=== PATIENT | female | born 1935 | race Caucasian/White ===

== ENCOUNTER → 2017-02-17 | Outpatient (CLI) | payer OTHER, MEDICARE ==
[~2017-02-17] MED LIST: ACCUPRIL PO; ACCUPRIL40 MG PO; ALEVE220 M1 PO; AMBEREN PO; APAP500 PO; ASPIRIN EC81 M1 PO; B-100 COMPLEX1 EAC1 PO; B-COMPLEX PLUS1 EACH PO; C-10001000 M1 PO; CARDIO OMEGA B1 EACH PO; CARDIOSTEROL C1 EACH PO; CARDIOTAB PO; CIPROFLOXACIN500 M1 PO; CITRACAL + BON1 EACH PO; CITRACAL + D C1 EACH PO; CO Q-10100 MG PO; COQ-10100 MG PO; DAILY MULTIPLE1 EAC2; DRANOCHOL375 MG PO; FISH OIL 1,0001 EAC5 PO; FLAGYL 250 MG250 MG PO; GLUCOSAMIN-CHO1 EACH PO; GLUCOSAMINE CH1 EAC7 PO; HEART HEALTH A400 MG PO; IMODIUM A-D1 MG/5 ML PO; LEVOTHYROXINE 0.1 MG PO; LIPITOR20 MG PO; LIPITOR40 MG PO; LOPERAMIDE 2 MG2 M1 PO; LOPRESSOR25 PO; MULTIVITAMINS PO; NORCO 5-325 TA1 EACH PO; OMEGA-3100 MG PO; OMEPRAZOLE PO; PACERONE 200 M200 M1 PO; PRADAXA150 MG PO; PRADAXA75 MG; PRADAXA75 MG PO; PREDNISOLONE PO; PREDNISONE PO; PRILOSEC 20 MG20 MG PO; QUINU10 PD PO; SLOW FE 160MG160 MG PO; VITAMIN D250000 UNIT PO; VITAMIN D31000 UNI2 PO; VITAMIN D35000 UNI1 PO; VITCB500GO PO
== END ==
LOC: RAD 09:37
DX: M47.892 Other spondylosis, cervical region (principal); M85.80 Other specified disorders of bone density and structure, unspecified site

== ENCOUNTER → 2017-02-27 | Outpatient (CLI) | payer OTHER, MEDICARE | LOC: MRI 08:21 | DX: M54.2 Cervicalgia (principal); M62.81 Muscle weakness (generalized); R20.2 Paresthesia of skin ==

== ENCOUNTER 2017-03-02 08:53 | Inpatient (IN) | payer OTHER, MEDICARE ==
[~2017-03-02] VITALS: Ht 157.5 cm; Wt 67.5 kg
[2017-03-02] VITALS (7 sets, daily range): BP systolic 89–152; BP diastolic 40–98
--- NOTE | ~2017-03-02 | HC ---
[facility] [place] [address] CONSULTATION Name: JAYLEN BORJA Room #: 460-P ADM IN M.R.#: [id number] Admission: 03/02/17 Attend Phys: Pablito Rodríguez MD Discharge: Date of : 34 Report #: [id number] THIS REPORT FOR: //name// CC: Pablito Maganala [facility] DATE OF SERVICE: 03/06/2017 INFECTIOUS DISEASE CONSULTATION ATTENDING PHYSICIAN: Pablito Rodríguez M.D. REASON FOR EVALUATION: Complicated urinary tract infection. HISTORY OF PRESENT ILLNESS: Chart reviewed, the patient examined. This is an 81-year-old female with fairly significant medical history, who apparently has had some neurological dysfunction, specifically bilateral upper extremity distal numbness and tingling for the last 3-4 weeks. She became progressively weak. She had multiple falls, one of which occurred prior to admission. She was down for 12 hours, has had some generalized pain and discomfort as well. She was evaluated in the emergency room including urinalysis, which showed marked pyuria as well as hematuria. She was started empirically on antimicrobial therapy, specifically ceftriaxone. Urine culture now with growth of Escherichia coli that is only mildly resistant. It is susceptible to Rocephin at less than 1. She is lucid at this point. She is noted to have increasing white count, initially at 20, peaked briefly and now it is 24.6. Also progressive anemia now with hemoglobin at 6.3. She is scheduled to undergo upper endoscopy. Due to the numbness and tingling, she had an MRI of her head that shows chronic age-related changes, no acute process. Chest x-ray was otherwise unrevealing as well. She has not been febrile. ALLERGIES: CIPRO, which causes more adverse drug effect with nausea. MEDICATIONS: Include pantoprazole, diltiazem CD, atorvastatin, metoprolol, aspirin, dabigatran, levothyroxine and ceftriaxone. PAST MEDICAL HISTORY: Atrial fibrillation, history of endometrial carcinoma, hypertension, polymyalgia rheumatica, history of reflux, TIAs, distant history of C. diff, previous total hip arthroplasty on the left, hysterectomy and bilateral catheters. SOCIAL HISTORY: Former smoker. No ethanol. FAMILY HISTORY: Noncontributory. REVIEW OF SYSTEMS: As above. [address] [address] CONSULTATION Name: JAYLEN BORJA Room #: 460-P [facility] IN M.R.#: [id number] Admission: 03/02/17 Attend Phys: Pablito Rodríguez MD Discharge: Date of : 34 Report #: [id number] PHYSICAL EXAMINATION: GENERAL: She is pleasant, alert, cooperative, appears somewhat chronically ill, undernourished. She is not overtly distressed. VITAL SIGNS: Temperature 97.7, pulse 88, respirations 20 and blood pressure 141/50. SKIN: Warm, dry. No rashes. HEENT: Otherwise, unremarkable. NECK: Supple. LUNGS: Generally clear. HEART: Irregular. I do not appreciate a murmur. ABDOMEN: Soft, nontender and nondistended. There are no peritoneal signs. GENITOURINARY: Deferred. RECTAL: Deferred. LABORATORY DATA: Most recent electrolytes: Sodium 142, potassium 4.0, chloride 109, bicarbonate is 22, anion gap of 11, BUN and creatinine 56 and 0.9 and glucose of 102. CBC: White count 24.6, H and H 6.3 and 19.6 and platelets of 397,000. Free T4 0.91. Hemoglobin A1c of 5.3. MRI of the head as described above. TSH of 1.671. ASSESSMENT AND PLAN: Complicated urinary tract infection and increasing leukocytosis. We will continue the ceftriaxone. I do not see another focus of pyogenic infection at this point. Certainly at risk to develop some diarrhea with her history of C. diff, may account for the leukocytosis. We will certainly pursue that possible diagnosis. May be reactive due to rapid blood loss and bone marrow aggressive response. We will see how she does clinically. Thank you. We will follow. <ELECTRONICALLY SIGNED> By: Kartik Garces MD 03/06/17 1535 0755 1054 Kartik Garces MD /nt
--- NOTE | ~2017-03-02 | EKG ---
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 : 1935 Requested By: Vamsi Robles Order Number: [id number] MD: Wali Lei Measurements Intervals [place] Rate: 106 P: MD: QRS: 32 QRSD: 91 T: 1 QT: 330 QTc: 439 Interpretive Statements Atrial fibrillation Borderline low voltage, extremity leads Minimal ST depression, inferior leads Compared to ECG 05/17/2015 10:47:01 ST (T wave) deviation now present Sinus bradycardia no longer present T-wave abnormality no longer present Electronically Signed On 03-03-2017 12:46:26 CDT by Wali Lei [email or web address] <ELECTRONICALLY SIGNED> By: Wali Lei MD 03/03/17 1246 5 5 Wali Lei MD /EPI
--- NOTE | ~2017-03-02 | HC ---
[facility] [place] [address] CONSULTATION Name: JAYLEN BORJA Room #: 460-P ADM IN M.R.#: [id number] Admission: 03/02/17 Attend Phys: Pablito Rodríguez MD Discharge: Date of : 34 Report #: [id number] THIS REPORT FOR: //name// CC: Pablito Maganatera HISTORY OF PRESENT ILLNESS: The patient is an 81-year-old white female admitted through the Emergency Department with dizziness, had a fall. She ended up spinning 2 days in a couch. She was admitted with low blood pressure, elevated white count, elevated creatinine noted to have sepsis secondary to urinary tract infection, acute renal insufficiency, atrial fibrillation with rapid ventricular rate. She has hypoxemia, currently on 2 liters nasal cannula. She had not been on any oxygen premorbidly. She has medical complexity with generalized debilitation. We are seeing her in rehabilitation medicine consultation. Of note is the fact that she also has been complaining of bilateral hand numbness. She did undergo a cervical spine MRI, which revealed severe stenosis at multiple levels. Critical stenosis with cord deformity and flattening anterior and posteriorly at C2-C3. No intrinsic cord signal changes were noted. PAST MEDICAL HISTORY: Includes hypertension, atrial fibrillation, GERD, Clostridium difficile, history of incontinence, GI bleed, endometriosis, polymyalgia rheumatica, hypothyroidism, uterine cancer status post radiation. PAST SURGICAL HISTORY: Includes total hysterectomy and a hip replacement. MEDICATIONS: Please see the medication listing. FAMILY HISTORY: Mother had a CVA and father had cancer. HABITS: Did smoke, quit greater than 1 year back in 1999. No history of alcohol use or drug use. SOCIAL HISTORY: She lives in a town house alone. No steps. Utilized a cane, there are 14 inside steps. There are two sisters and a [id number] that live in [place], [place]. She has a neighbor a couple of blocks away that is supportive. REVIEW OF SYSTEMS: No current complaints of chest pain, shortness of breath or abdominal discomfort. She does have complaints of the bilateral hand numbness. She has had prior urinary incontinence. No focal extremity pain complaints. Did not complain of any headaches or other bowel or bladder changes. PHYSICAL EXAMINATION: GENERAL: An 81-year-old white female, pleasant, in no obvious distress. VITAL SIGNS: Last recorded temperature is 97.6, pulse 79, respirations 18, blood pressure 122/49. NEUROLOGIC: The patient is alert, pleasant. She is a reasonable historian. [address] [address] CONSULTATION Name: JAYLEN BORJA Room #: 460-[facility] IN ..#: [id number] Admission: 03/02/17 Attend Phys: Pablito Rodríguez MD Discharge: Date of : 34 Report #: [id number] Facies are symmetric. She is on 2 liters nasal prong O2. EXTREMITIES: Functional range of motion to both upper extremities. She does appear to have both hands that are little colder than her proximal upper body. She appears to have good capillary refill; however, with good perfusion. Negative Tinel's over the carpal tunnel and negative Phalen's bilaterally. Strength of the upper extremities is probably a grade 4-/5. In the lower extremities, there is no focal calf swelling, functional range of motion with strength grade 3+ to 4-/5. Tone appeared to be intact. She was contact guard with sit to stand and ambulated 60 feet min assist with a front-wheeled walker. ASSESSMENT: An 81-year-old white female with the following problem list: 1. Medical complexity with generalized debilitation. 2. Sepsis secondary to urinary tract infection. 3. Acute renal insufficiency. 4. Atrial fibrillation with rapid ventricular rate, considering the risks may outweigh benefits as far as anticoagulation. Question to just treat with aspirin alone. 5. Hypertension. 6. Hypothyroidism. 7. History of GI bleed. 8. History of Clostridium difficile. 9. Gastroesophageal reflux disease. PLAN: Therapies are continuing to work with her on improving her strength and endurance and ADL independence. We will be glad to follow along with you regarding her rehab therapy needs. ADDENDUM: Her problem list also includes the severe cervical spinal stenosis that is documented on her MRI scan. Thank you for asking us to assist in this patient's care. <ELECTRONICALLY SIGNED> By: Rodriguez Lagunas MD 03/10/17 1825 1522 Rodriguez Lagunas MD /nt
--- NOTE | ~2017-03-02 | 2DMMODE ---
[facility] [place] [address] 2 D/M-MODE ECHOCARDIOGRAM Name: JAYLEN BORJA Room #: 460-P [facility] IN ..#: [id number] Admission: 03/02/17 Attend Phys: Pablito Rodríguez, Discharge: Date of : 34 Date of Service: 03/03/17 1636 Report #: [id number] THIS REPORT FOR: //name// APPROVED REPORT Study performed: 03/03/2017 07:39:37 EXAM: Comprehensive 2D, Doppler, and color-flow Echocardiogram Patient Location: Bedside Room #: 460 Status: routine Other Information Study Quality: Adequate Indications Atrial Fibrillation 2D Dimensions RVDd: 37.86 mm LVEF(%): 60.64 (>50%) IVSd: 7.47 (7-11mm) LVOT Diam: 18.13 (18-24mm) LVDd: 35.36 mm PWd: 10.46 (7-11mm) LVDs: 24.17 (25-40mm) Aortic Root: 30.66 mm Apodaca's LVEF: 60.64 % Volumes Left Atrial Volume (Systole) Single Plane 4CH: 38.91 mL Single Plane 2CH: 57.85 mL LA ESV Index: 33.00 mL/m2 Aortic Valve AoV Peak Nikolay.: 1.83 m/s AO Peak Gr.: 13.44 mmHg LVOT Max P.64 mmHg LVOT Max V: 1.08 m/s JENNYFER Vmax: 1.52 cm2 Mitral Valve MV Decel. Time: 235.92 ms MV E Max Nikolay.: 1.17 m/s Pulmonary Valve PV Peak Nikolay.: 1.23 m/s PV Peak Gr.: 6.06 mmHg [facility] [address] [place] [address] 2 D/M-MODE ECHOCARDIOGRAM Name: JAYLEN BORJA Room #: 460-[facility] IN [facility].#: [id number] Admission: 03/02/17 Attend Phys: Pablito Rodríguez, Discharge: Date of : 34 Date of Service: 03/03/17 1636 Report #: [id number] Tricuspid Valve TR Peak Nikolay.: 2.75 m/s RAP Estimate: 5.00 mmHg TR Peak Gr.: 30.29 mmHg PA Pressure: 35.00 mmHg Left Ventricle The left ventricle is normal size. There is normal LV segmental wall motion. There is normal left ventricular wall thickness. The left ventricular systolic function is normal. The left ventricular ejection fraction is within the normal range. LVEF is 55-60%. This study is not technically sufficient to allow evaluation of the LV diastolic function due to atrial fibrillation. Right Ventricle The right ventricle is normal size. The right ventricular systolic function is normal. Atria The left atrium size is normal. The right atrium size is normal. Aortic Valve The aortic valve is normal in structure. Trace aortic regurgitation. There is no aortic valvular stenosis. 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 Trace mitral regurgitation. No evidence of mitral valve stenosis. Tricuspid Valve Tricuspid valve leaflets are thickened but open well. There is trace tricuspid regurgitation. The right atrial pressure is estimated at 10 mmHg. There is mild pulmonary hypertension with an estimated PAP of 40 mmHg. Pulmonic Valve The pulmonary valve is normal in structure. There is no pulmonic valvular regurgitation. Great Vessels The aortic root is normal in size. IVC is dilated and collapses >50% with inspiration. Pericardium There is no pericardial effusion. [facility] [address] [place] [address] 2 D/M-MODE ECHOCARDIOGRAM Name: JAYLEN BORJA Room #: 460-P [facility] IN .R.#: [id number] Admission: 03/02/17 Attend Phys: Pablito Rodríguez, Discharge: Date of : 34 Date of Service: 03/03/17 1636 Report #: [id number] <Conclusion> The left ventricle is normal size. LVEF is 55-60%. The aortic valve is normal in structure. Trace aortic regurgitation. Mitral valve leaflets appear myxomatous. Trace mitral regurgitation. Tricuspid valve leaflets are thickened but open well. There is trace tricuspid regurgitation. The right atrial pressure is estimated at 10 mmHg. There is mild pulmonary hypertension with an estimated PAP of 40 mmHg. The pulmonary valve is normal in structure. There is no pulmonic valvular regurgitation. <ELECTRONICALLY SIGNED> By: Dann Hoyt MD 03/03/17 1636 1636 163 Dann Hoyt MD /INF
--- NOTE | ~2017-03-02 | EKG ---
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
--- NOTE | ~2017-03-02 | HC ---
[facility] [place] [address] CONSULTATION Name: JAYLEN BORJA Room #: 460-P ADM IN .R.#: [id number] Admission: 03/02/17 Attend Phys: Pablito Rodríguez MD Discharge: Date of : 34 Report #: [id number] THIS REPORT FOR: //name// CC: Johnathan Mackey MD [facility] Pablito Morley MD DATE OF SERVICE: 03/06/2017 HISTORY OF PRESENT ILLNESS: The patient is an 81-year-old female who was admitted on 03/02/2017 after having several falls at home and being down for a period of time. On admission, she was hypertension, white count was 20,000, creatinine was elevated and she was diagnosed with sepsis and UTI. She has been on IV antibiotics. Reason for GI consultation is a drop in her hemoglobin. Her hemoglobin on admission was 11.1; today, it is 6.3. She denies any obvious bright red blood per rectum or melena. She denies any abdominal pain. She has had a previous history of GI bleed in which I did a colonoscopy on her in 2011 in which a cecal AVM was actively bleeding. This was cauterized at that time. The patient is on Pradaxa and aspirin, her last dose was yesterday for . Her white count today is 24.6. Blood has been ordered, but has not been transfused as of yet. She has not hypertensive at this time. She denies any chest pain or shortness of breath currently. PAST MEDICAL HISTORY: Sepsis, urinary tract infection, history of severe spinal stenosis, back pain, previous history of small-bowel obstruction, she had a total hysterectomy, left hip replacement, previous history of pneumonia, polymyalgia rheumatica, cataract surgery, history of C. diff in 2010, cecal AVM with bleeding in 2011, gastroesophageal reflux disease, hypertension and history of endometrial cancer. MEDICATIONS: From home Lopressor, Pradaxa, aspirin, Synthroid and Accupril. She is on IV antibiotics here for sepsis, which includes ceftriaxone. She is also on Protonix 40 mg every day, started today. REVIEW OF SYSTEMS: As per HPI. FAMILY HISTORY: Negative for colon cancer. SOCIAL HISTORY: She denies any tobacco or alcohol use. ALLERGIES: CIPRO. PHYSICAL EXAMINATION: [facility] [address] [place] [address] CONSULTATION Name: JAYLEN BORJA Room #: 460-P [facility] IN ..#: [id number] Admission: 03/02/17 Attend Phys: Pablito Rodríguez MD Discharge: Date of : 34 Report #: [id number] VITAL SIGNS: Temperature is 98.4, pulse 108, blood pressure 138/70 and respiratory rate is 20. GENERAL: She is alert and oriented, in no acute distress. HEENT: Sclerae nonicteric. Oropharynx clear. NECK: Supple, without lymphadenopathy. CARDIOVASCULAR: Regular rate. CHEST: Clear to auscultation bilaterally. ABDOMEN: Soft. She is nontender and nondistended. Normoactive bowel sounds. EXTREMITIES: No cyanosis or clubbing. Trace edema in the lower extremities bilaterally. LABORATORY DATA: Sodium 142, potassium 4.0, chloride 109, bicarbonate 22, BUN 56, creatinine 0.9 and glucose 102. AST 59, total bilirubin 0.7, alkaline phosphatase 144 and ALT is 67. Albumin 2.4. Troponin less than 0.04 on the . Iron 66, TIBC 220. WBC is 24.6, hemoglobin 6.3, MCV 88.7 and platelet count is 397,000. She had an MRI of her head with no acute changes on 03/05/2017. ASSESSMENT AND PLAN: Anemia. The patient with recent drop in hemoglobin. She has been on aspirin and Pradaxa. There was no obvious history of melena or bright red blood per rectum; however, suspect GI bleed. We will proceed with an upper endoscopy today. Agree with Protonix and continuing to hold her anticoagulation therapy at this time. We will make further recommendations after endoscopy. Plan is for transfusion today as well. Thank you for allowing me to participate in her care. <ELECTRONICALLY SIGNED> By: Kevin Smalls MD 03/16/17 1212 1003 1158 Kevin Smalls MD /nt
--- NOTE | ~2017-03-02 | EEG ---
[facility] [place] [address] ELECTROENCEPHALOGRAM Name: JAYLEN BORJA Room #: 460-P [facility] IN M.R.#: [id number] Admission: 03/02/17 Attend Phys: Pablito Rodríguez MD Discharge: Date of : 34 Report #: [id number] THIS REPORT FOR: //name// CC: Pablito Constantino [facility] DATE OF SERVICE: 03/04/2017 This patient is being evaluated for an episode of syncope. EEG was done by placing the electrodes by standard 10-20 system of electrode placement. Both referential and sequential montages were used for recording. Background activity in this patient's EEG is about 9 Hz and 30 microvolt. This is a symmetrical activity. Photic stimulation was unremarkable. This patient became drowsy and that was associated with bilateral slowing and a few vertex sharp waves, which were symmetrical throughout the records. No active epileptiform activity was noticed. IMPRESSION: This patient's EEG is within normal limit. Thank you very much for this referral. <ELECTRONICALLY SIGNED> By: Franco Cornell MD 03/10/17 1018 Franco Cornell MD /nt
--- NOTE | ~2017-03-02 | P ---
[facility] [place] [address] PROCEDURE REPORT Name: JAYLEN BORJA Room #: 460-P [facility] IN M.R.#: [id number] Admission: 03/02/17 Attend Phys: Pablito Rodríguez MD Discharge: Date of : 34 Report #: [id number] THIS REPORT FOR: //name// CC: Johnathan Mackey MD [facility] Pablito Morley MD DATE OF SERVICE: 03/06/2017 PROCEDURE PERFORMED: Upper endoscopy. HISTORY OF PRESENT ILLNESS: The patient is an 81-year-old female with urosepsis, weakness, recent drop in hemoglobin to 6.3. She has been on Pradaxa an aspirin. This has now been held. Protonix has been started. There has been no obvious history of melena or bright red blood per rectum. Plan is for EGD. DESCRIPTION OF PROCEDURE: The risks and benefits of the procedure were explained to the patient, those risks including but not limited to bleeding, perforation, the risk of sedation. She understood these risks and gave informed consent. Sedation was given using propofol per anesthesia. Next, using a standard Nginxn upper endoscope, the scope was placed in the patient's mouth and advanced under direct vision through the esophagus, stomach and into the second portion of the duodenum. The larynx and upper and mid esophagus were normal in appearance. Mild grade A erosive esophagitis noted at the GE junction as well as a stricture. The scope passed through this area without difficulty. Upon entering the stomach, a large hiatal hernia was noted. Several Bryan ulcers were noted within the hernia. No active bleeding, although there was a small amount of old blood in this area. There were several gastric erosions in the antrum. The pylorus was normal and patent. In the duodenal bulb, a single 1 cm ulcer was noted, clean white based. Another centimeter ulcer was seen in the first portion of the duodenum, also clean white based. There was no blood in the duodenum. The second portion of the duodenum was normal. The scope was then withdrawn and the procedure terminated. The patient tolerated the procedure well. IMPRESSION: 1. Grade A erosive esophagitis. 2. Mild Schatzki's ring. 3. Large hiatal hernia with Bryan ulcers. 4. Antral erosions. 5. Two duodenal ulcers. RECOMMENDATIONS: Drop in hemoglobin, likely secondary to either ulcers in the [facility] [address] [place] [address] PROCEDURE REPORT Name: JAYLEN BORJA Room #: 460-P [facility] IN .R.#: [id number] Admission: 03/02/17 Attend Phys: Pablito Rodríguez MD Discharge: Date of : 34 Report #: [id number] stomach or duodenum. At this point, would recommend continuing PPI therapy. We will add Carafate. Continue to hold anticoagulation therapy and monitor hemoglobin. Thank you for allowing me to participate in her care. <ELECTRONICALLY SIGNED> By: Kevin Smalls MD 03/16/17 1212 1006 1120 Kevin Smalls MD /nt
[2017-03-02 09:39] LABS: HEMOGLOBIN 11.1 gm/dL (12.0-15.0); MCH 29.3 pg (26.0-34.0); MCHC 32.8 g/dL (28.0-37.0); MCV 89.4 fL (80.0-100.0); PLATELET COUNT 327 thou/uL (150-400); WBC 20.3 thou/uL (4.0-11.0)
[2017-03-02 09:43] LABS: MANUAL DIFF YES
[2017-03-02 09:52] LABS: ANION GAP 11 mmol/L (7-16); BUN 52 mg/dL (7-18); CALCIUM 9.6 mg/dL (8.5-10.1); CHLORIDE 97 mmol/L (98-107); CO2 24 mmol/L (21-32); CREATININE 1.7 mg/dL (0.6-1.0); GLUCOSE 122 mg/dL (74-106); POTASSIUM 3.5 mmol/L (3.5-5.1); SODIUM 132 mmol/L (136-145)
[2017-03-02 09:57] LABS: ALBUMIN 2.4 g/dL (3.4-5.0); ALKALINE PHOSPHATASE 144 U/L (46-116); SGOT 59 U/L (15-37); SGPT 67 U/L (30-65); TOTAL BILIRUBIN 0.7 mg/dL (<0.1-1.0); TOTAL PROTEIN 7.4 g/dL (6.4-8.2); TROPONIN-I < 0.04 ng/mL (<0.04-0.07)
[2017-03-02 10:25] LABS: URINE BILIRUBIN NEGATIVE (Negative); URINE BLOOD 1+ (Negative); URINE COLOR YELLOW; URINE GLUCOSE-RANDOM* NEGATIVE (Negative); URINE KETONES NEGATIVE (Negative); URINE LEUKOCYTES-REFLEX 1+ (Negative); URINE PROTEIN (DIPSTICK) 1+ (Negative); URINE UROBILINOGEN 0.2 E.U./dl (0.2-1.0)
[2017-03-02 10:38] LABS: SQUAMOUS 0-3 Few /LPF (0-3)
[2017-03-02 10:39] LABS: AMORPHOUS URATES Few /LPF (None Seen); CASTS None Seen /LPF (None Seen); URINE RBC 0-2 Rare /HPF (0-2)
[2017-03-02 10:41] LABS: ABSOLUTE NEUTROPHILS 19.3 thou/uL (1.4-8.2); METAMYELOCYTES 1 %; PLATELET ESTIMATE NORMAL; TOTAL CELL COUNT 100
[2017-03-03 04:13] VITALS: BP 118/52
[2017-03-03 06:31] LABS: HEMATOCRIT 29.9 % (37.0-47.0); HEMOGLOBIN 9.7 gm/dL (12.0-15.0); MCH 29.3 pg (26.0-34.0); MCHC 32.5 g/dL (28.0-37.0); RBC 3.32 mil/uL (4.20-5.00); RDW 15.1 % (10.5-14.5); WBC 19.5 thou/uL (4.0-11.0)
[2017-03-03 08:00] VITALS: BP 128/62
[2017-03-03 11:01] LABS: CALCIUM 8.9 mg/dL (8.5-10.1); POTASSIUM 3.5 mmol/L (3.5-5.1)
[2017-03-03 12:08] VITALS: BP 122/49
[2017-03-03 16:25] VITALS: BP 134/71
[2017-03-03 20:13] VITALS: BP 145/50
[2017-03-03 23:24] VITALS: BP 101/74
[2017-03-04 03:46] VITALS: BP 152/77
[2017-03-04 07:11] LABS: HEMOGLOBIN 9.1 gm/dL (12.0-15.0); MCH 29.5 pg (26.0-34.0); MCHC 33.6 g/dL (28.0-37.0); MCV 87.7 fL (80.0-100.0); RBC 3.07 mil/uL (4.20-5.00); WBC 18.9 thou/uL (4.0-11.0)
[2017-03-04 07:26] LABS: CREATININE 0.9 mg/dL (0.6-1.0); POTASSIUM 3.7 mmol/L (3.5-5.1)
[2017-03-04 07:40] VITALS: BP 162/79
[2017-03-04 11:45] VITALS: BP 134/68
[2017-03-04 13:51] LABS: CHOLESTEROL 157 mg/dL (<200); HDL CHOLESTEROL 11 mg/dL (>40); LDL CHOLESTEROL 111 mg/dL (<100); TC:HDL 14.3 Ratio (Not establshd); TRIGLYCERIDE 176 mg/dL (<150); VLDL 35 mg/dL (<40)
[2017-03-04 19:39] VITALS: BP 160/85
[2017-03-04 23:34] VITALS: BP 181/78
[2017-03-05 03:40] VITALS: BP 145/75
[2017-03-05 03:51] LABS: CALCIUM 8.9 mg/dL (8.5-10.1); CREATININE 0.9 mg/dL (0.6-1.0); POTASSIUM 4.2 mmol/L (3.5-5.1)
[2017-03-05 04:14] LABS: HEMATOCRIT 22.6 % (37.0-47.0); HEMOGLOBIN 7.7 gm/dL (12.0-15.0); MCH 29.8 pg (26.0-34.0); MCHC 34.1 g/dL (28.0-37.0); MCV 87.5 fL (80.0-100.0); RBC 2.59 mil/uL (4.20-5.00); RDW 15.3 % (10.5-14.5); WBC 23.2 thou/uL (4.0-11.0)
[2017-03-05 04:46] LABS: FOLIC ACID 8.6 ng/mL (8.6-58.9); TSH 1.671 uIU/mL (0.358-3.740)
[2017-03-05 07:29] VITALS: BP 126/59
[2017-03-05 11:39] VITALS: BP 121/49
[2017-03-05 12:13] LABS: FREE T4 0.91 ng/dL (0.82-1.77)
[2017-03-05 16:16] VITALS: BP 133/59
[2017-03-05 19:40] VITALS: BP 142/46
[2017-03-06 04:09] LABS: GLYCOHEMOGLOBIN (HGB A1C) 5.3 % (4.8-5.6)
[2017-03-06 04:30] VITALS: BP 141/50
[2017-03-06 05:55] LABS: MCH 28.8 pg (26.0-34.0); MCHC 32.4 g/dL (28.0-37.0); MCV 88.7 fL (80.0-100.0); RBC 2.21 mil/uL (4.20-5.00); RDW 15.2 % (10.5-14.5); WBC 24.6 thou/uL (4.0-11.0)
[2017-03-06 06:05] LABS: CALCIUM 8.7 mg/dL (8.5-10.1); CREATININE 0.9 mg/dL (0.6-1.0)
[2017-03-06 06:07] LABS: HEMATOCRIT 19.6 % (37.0-47.0); HEMOGLOBIN 6.3 gm/dL (12.0-15.0)
[2017-03-06 07:22] LABS: TIBC 220 ug/dL (250-450)
[2017-03-06 07:37] LABS: % SATURATION 30 % (20-39); IRON 66 ug/dL (50-170); UIBC 154 ug/dL
[2017-03-06 08:30] VITALS: BP 138/70
[2017-03-06 11:57] VITALS: BP 132/60; BP 137/62
[2017-03-06 15:22] VITALS: BP 131/66
[2017-03-06 20:02] VITALS: BP 137/66
[2017-03-07 04:15] VITALS: BP 133/50
[2017-03-07 06:08] LABS: HEMATOCRIT 23.6 % (37.0-47.0); HEMOGLOBIN 7.7 gm/dL (12.0-15.0); MCH 29.5 pg (26.0-34.0); MCHC 32.9 g/dL (28.0-37.0); MCV 89.9 fL (80.0-100.0); RBC 2.62 mil/uL (4.20-5.00); WBC 27.5 thou/uL (4.0-11.0)
[2017-03-07 06:18] LABS: CALCIUM 8.6 mg/dL (8.5-10.1); CREATININE 0.8 mg/dL (0.6-1.0); POTASSIUM 3.7 mmol/L (3.5-5.1)
[2017-03-07 08:02] VITALS: BP 120/50
[2017-03-07 11:07] VITALS: BP 117/67
[2017-03-07 15:23] VITALS: BP 124/68
[2017-03-07 16:06] LABS: ALPHA TOCOPHEROL 13.8 mg/L (6.5-21.5)
[2017-03-07 19:25] VITALS: BP 128/64
[2017-03-07 23:20] VITALS: BP 136/62
[2017-03-08 04:04] VITALS: BP 133/62
[2017-03-08 06:27] LABS: HEMATOCRIT 24.5 % (37.0-47.0); HEMOGLOBIN 8.2 gm/dL (12.0-15.0); MCH 29.8 pg (26.0-34.0); MCHC 33.4 g/dL (28.0-37.0); MCV 89.5 fL (80.0-100.0); RBC 2.73 mil/uL (4.20-5.00); RDW 14.9 % (10.5-14.5); WBC 29.7 thou/uL (4.0-11.0)
[2017-03-08 06:40] LABS: CALCIUM 8.4 mg/dL (8.5-10.1); CREATININE 0.6 mg/dL (0.6-1.0); POTASSIUM 3.8 mmol/L (3.5-5.1)
[2017-03-08 08:14] VITALS: BP 136/70
[2017-03-08 16:21] VITALS: BP 121/44
[2017-03-08 19:30] VITALS: BP 122/61
[2017-03-09 03:02] LABS: URINE BILIRUBIN NEGATIVE (Negative); URINE BLOOD NEGATIVE (Negative); URINE COLOR YELLOW; URINE GLUCOSE-RANDOM* NEGATIVE (Negative); URINE KETONES NEGATIVE (Negative); URINE LEUKOCYTES-REFLEX TRACE (Negative); URINE PROTEIN (DIPSTICK) NEGATIVE (Negative); URINE SPECIFIC GRAVITY 1.015 (1.003-1.035); URINE UROBILINOGEN 0.2 E.U./dl (0.2-1.0)
[2017-03-09 04:14] VITALS: BP 112/56
[2017-03-09 05:12] LABS: HEMATOCRIT 22.5 % (37.0-47.0); HEMOGLOBIN 7.1 gm/dL (12.0-15.0); MCH 29.1 pg (26.0-34.0); MCHC 31.6 g/dL (28.0-37.0); MCV 92.3 fL (80.0-100.0); PLATELET COUNT 313 thou/uL (150-400); RBC 2.44 mil/uL (4.20-5.00); RDW 15.1 % (10.5-14.5); WBC 21.8 thou/uL (4.0-11.0)
[2017-03-09 05:14] LABS: MANUAL DIFF YES
[2017-03-09 05:20] LABS: CALCIUM 8.1 mg/dL (8.5-10.1); CREATININE 0.7 mg/dL (0.6-1.0); POTASSIUM 3.3 mmol/L (3.5-5.1)
[2017-03-09 05:50] LABS: ABSOLUTE NEUTROPHILS 19.2 thou/uL (1.4-8.2); METAMYELOCYTES 1 %; POLYCHROMASIA 2+; TOTAL CELL COUNT 100
[2017-03-09 07:41] VITALS: BP 118/53
[2017-03-09 11:20] VITALS: BP 102/56
[2017-03-09 15:32] VITALS: BP 101/51
[2017-03-09 18:59] VITALS: BP 103/37
[2017-03-10] VITALS (7 sets, daily range): BP systolic 102–134; BP diastolic 40–58
[2017-03-10 05:01] LABS: HEMATOCRIT 21.4 % (37.0-47.0); MCH 30.1 pg (26.0-34.0); MCHC 32.8 g/dL (28.0-37.0); MCV 91.6 fL (80.0-100.0); RBC 2.33 mil/uL (4.20-5.00); WBC 22.2 thou/uL (4.0-11.0)
[2017-03-10 05:05] LABS: CALCIUM 7.9 mg/dL (8.5-10.1); CREATININE 0.7 mg/dL (0.6-1.0); POTASSIUM 3.3 mmol/L (3.5-5.1)
[2017-03-11 04:13] VITALS: BP 119/53
[2017-03-11 05:47] LABS: HEMATOCRIT 29.4 % (37.0-47.0); HEMOGLOBIN 10.1 gm/dL (12.0-15.0)
[2017-03-11 08:15] VITALS: BP 143/51
[2017-03-11 10:42] LABS: HEMATOCRIT 31.9 % (37.0-47.0); HEMOGLOBIN 10.9 gm/dL (12.0-15.0); MCH 31.3 pg (26.0-34.0); MCHC 34.1 g/dL (28.0-37.0); MCV 91.8 fL (80.0-100.0); RBC 3.47 mil/uL (4.20-5.00); RDW 15.3 % (10.5-14.5); WBC 22.7 thou/uL (4.0-11.0)
[2017-03-11 10:54] LABS: CALCIUM 7.9 mg/dL (8.5-10.1); CREATININE 0.7 mg/dL (0.6-1.0)
[2017-03-11 10:55] LABS: POTASSIUM 2.7 mmol/L (3.5-5.1)
[2017-03-11 11:35] VITALS: BP 122/69
[2017-03-11 15:37] VITALS: BP 128/49
[2017-03-11 19:38] LABS: CALCIUM 8.1 mg/dL (8.5-10.1); CREATININE 0.7 mg/dL (0.6-1.0); MAGNESIUM 1.9 mg/dL (1.8-2.4)
[2017-03-11 19:39] LABS: POTASSIUM 4.3 mmol/L (3.5-5.1)
[2017-03-11 20:15] VITALS: BP 134/57
[2017-03-12 04:00] VITALS: BP 131/53
[2017-03-12 06:38] LABS: HEMATOCRIT 28.9 % (37.0-47.0); HEMOGLOBIN 9.6 gm/dL (12.0-15.0); MCH 30.9 pg (26.0-34.0); MCHC 33.1 g/dL (28.0-37.0); MCV 93.3 fL (80.0-100.0); RBC 3.1 mil/uL (4.20-5.00); RDW 15.8 % (10.5-14.5); WBC 23.7 thou/uL (4.0-11.0)
[2017-03-12 08:10] VITALS: BP 152/67
[2017-03-12 12:34] VITALS: BP 134/63
[2017-03-12 16:22] VITALS: BP 148/58
[2017-03-12 20:20] VITALS: BP 150/63
[2017-03-13 04:26] VITALS: BP 139/69
[2017-03-13 05:22] LABS: HEMATOCRIT 29.2 % (37.0-47.0); HEMOGLOBIN 9.8 gm/dL (12.0-15.0); MCH 31.1 pg (26.0-34.0); MCHC 33.6 g/dL (28.0-37.0); MCV 92.7 fL (80.0-100.0); PLATELET COUNT 181 thou/uL (150-400); RBC 3.16 mil/uL (4.20-5.00); RDW 15.8 % (10.5-14.5); WBC 23.8 thou/uL (4.0-11.0)
[2017-03-13 05:26] LABS: MANUAL DIFF YES
[2017-03-13 07:22] VITALS: BP 142/70
[2017-03-13 08:42] LABS: ABSOLUTE NEUTROPHILS 21.9 thou/uL (1.4-8.2); TOTAL CELL COUNT 100
[2017-03-13 08:43] LABS: ANISOCYTOSIS 1+; POLYCHROMASIA OCCASIONAL
[2017-03-13 11:43] VITALS: BP 102/54
[2017-03-13 19:25] VITALS: BP 131/52
[2017-03-13 23:19] VITALS: BP 126/65
[2017-03-14 02:36] VITALS: BP 130/52
[2017-03-14 06:08] LABS: HEMATOCRIT 29.5 % (37.0-47.0); HEMOGLOBIN 9.7 gm/dL (12.0-15.0); MCH 30.7 pg (26.0-34.0); MCHC 32.9 g/dL (28.0-37.0); MCV 93.4 fL (80.0-100.0); RBC 3.16 mil/uL (4.20-5.00); RDW 16.1 % (10.5-14.5); WBC 17.6 thou/uL (4.0-11.0)
[2017-03-14 08:20] VITALS: BP 126/59
[2017-03-14 12:04] VITALS: BP 123/61
[2017-03-14 16:08] VITALS: BP 115/53
[2017-03-14 20:59] VITALS: BP 152/54
[2017-03-15 03:10] VITALS: BP 126/52
[2017-03-15 07:46] VITALS: BP 131/61
[2017-03-15 14:11] LABS: HEMATOCRIT 28.8 % (37.0-47.0); HEMOGLOBIN 9.5 gm/dL (12.0-15.0); MCHC 33.2 g/dL (28.0-37.0); MCV 93.5 fL (80.0-100.0); RBC 3.08 mil/uL (4.20-5.00); RDW 15.9 % (10.5-14.5); WBC 12.4 thou/uL (4.0-11.0)
[2017-03-15 14:14] LABS: CALCIUM 8.1 mg/dL (8.5-10.1); CREATININE 0.6 mg/dL (0.6-1.0)
[2017-03-15 14:18] LABS: POTASSIUM 2.6 mmol/L (3.5-5.1)
[2017-03-15 15:11] VITALS: BP 130/64
[2017-03-15 19:52] VITALS: BP 147/89
[2017-03-16 02:33] LABS: HEMATOCRIT 25.5 % (37.0-47.0); HEMOGLOBIN 8.6 gm/dL (12.0-15.0); MCH 31.1 pg (26.0-34.0); MCHC 33.5 g/dL (28.0-37.0); RBC 2.75 mil/uL (4.20-5.00); RDW 15.8 % (10.5-14.5); WBC 10.9 thou/uL (4.0-11.0)
[2017-03-16 02:46] LABS: CALCIUM 8.1 mg/dL (8.5-10.1); CREATININE 0.6 mg/dL (0.6-1.0)
[2017-03-16 02:48] LABS: POTASSIUM 3.8 mmol/L (3.5-5.1)
[2017-03-16 04:11] VITALS: BP 136/69
[2017-03-16 07:53] VITALS: BP 140/72
[2017-03-16 12:01] VITALS: BP 143/85
[2017-03-16 16:02] VITALS: BP 138/53
[2017-03-16 20:04] VITALS: BP 123/52
[2017-03-17 04:12] VITALS: BP 107/49
[2017-03-17 06:30] LABS: HEMATOCRIT 28.1 % (37.0-47.0); HEMOGLOBIN 9.3 gm/dL (12.0-15.0); MCH 30.8 pg (26.0-34.0); MCHC 33.2 g/dL (28.0-37.0); MCV 92.7 fL (80.0-100.0); RBC 3.03 mil/uL (4.20-5.00); WBC 9.9 thou/uL (4.0-11.0)
[2017-03-17 06:43] LABS: CALCIUM 8.1 mg/dL (8.5-10.1); CREATININE 0.6 mg/dL (0.6-1.0); POTASSIUM 3.2 mmol/L (3.5-5.1)
[2017-03-17 09:07] VITALS: BP 132/56
[2017-03-17 11:56] VITALS: BP 108/42
[2017-03-17] MEDS ORDERED: VANCOMYCIN100 MG/ML PO (12:40)
[2017-03-17] MEDS ORDERED: FLOMAX0.4 MG PO (12:40)
[2017-03-17] MEDS ORDERED: LIPITOR10 MG PO (12:41)
[2017-03-17] MEDS ORDERED: CARDIZEM CD120 MG PO (12:41)
[2017-03-17] MEDS ORDERED: ADULT LOW DOSE81 MG PO (12:43)
[2017-03-17] MEDS ORDERED: CARAFATE 11 GM/10 M1 PO (12:46)
[2017-03-17] MEDS ORDERED: PANTOPRAZOLE SO40 M1 PO (12:47)
== END 2017-03-17 15:54 | DRG 871 ==
LOC: ER 08:53 → EROBS 10:41 → 4W 10:41
PROVIDERS: Hospitalist; Internal Medicine; Internal Medicine Gastroenterology; Internal Medicine Infectious Disease; Nurse Practitioner Acute Care; Nurse Practitioner Family; Physician Assistant; Psychiatry & Neurology Neurology
PROC: 05H633Z Insertion of Infusion Device into Left Subclavian Vein, Percutaneous Approach (ICD-10-PCS; principal; 2017-03-03)
PROC: 02HV33Z Insertion of Infusion Device into Superior Vena Cava, Percutaneous Approach (ICD-10-PCS; 2017-03-06)
PROC: 0DJ08ZZ Inspection of Upper Intestinal Tract, Via Natural or Artificial Opening Endoscopic (ICD-10-PCS; 2017-03-06)
PROC: 30233N1 Transfusion of Nonautologous Red Blood Cells into Peripheral Vein, Percutaneous Approach (ICD-10-PCS; 2017-03-06)
DX: A41.9 Sepsis, unspecified organism (principal); E43 Unspecified severe protein-calorie malnutrition; N17.0 Acute kidney failure with tubular necrosis; R65.21 Severe sepsis with septic shock; K25.4 Chronic or unspecified gastric ulcer with hemorrhage; K26.4 Chronic or unspecified duodenal ulcer with hemorrhage; K22.10 Ulcer of esophagus without bleeding; J98.11 Atelectasis; D62 Acute posthemorrhagic anemia; A04.7 Enterocolitis due to Clostridium difficile; N13.30 Unspecified hydronephrosis; K56.60 Unspecified intestinal obstruction; K44.9 Diaphragmatic hernia without obstruction or gangrene; Z66 Do not resuscitate; B96.20 Unspecified Escherichia coli [E. coli] as the cause of diseases classified elsewhere; K22.2 Esophageal obstruction; I10 Essential (primary) hypertension; Z96.642 Presence of left artificial hip joint; M35.3 Polymyalgia rheumatica; K21.9 Gastro-esophageal reflux disease without esophagitis; E03.9 Hypothyroidism, unspecified; M48.00 Spinal stenosis, site unspecified; R29.6 Repeated falls; F03.90 Unspecified dementia, unspecified severity, without behavioral disturbance, psychotic disturbance, mood disturbance, and anxiety; E11.9 Type 2 diabetes mellitus without complications; I48.0 Paroxysmal atrial fibrillation; N30.90 Cystitis, unspecified without hematuria; E87.6 Hypokalemia; N32.0 Bladder-neck obstruction; R26.9 Unspecified abnormalities of gait and mobility; E87.8 Other disorders of electrolyte and fluid balance, not elsewhere classified; K26.9 Duodenal ulcer, unspecified as acute or chronic, without hemorrhage or perforation; Z90.710 Acquired absence of both cervix and uterus; Z86.73 Personal history of transient ischemic attack (TIA), and cerebral infarction without residual deficits; Z87.01 Personal history of pneumonia (recurrent); Z85.42 Personal history of malignant neoplasm of other parts of uterus; Z92.3 Personal history of irradiation; Z68.27 Body mass index [BMI] 27.0-27.9, adult; Z98.42 Cataract extraction status, left eye; Z98.41 Cataract extraction status, right eye; Z88.1 Allergy status to other antibiotic agents; Z87.891 Personal history of nicotine dependence; Z79.899 Other long term (current) drug therapy; Z82.3 Family history of stroke; Z80.8 Family history of malignant neoplasm of other organs or systems
CPT/HCPCS: 10045; 27000; 27001; 62110; 62900; 70005

== ENCOUNTER 2017-03-29 16:23 | Inpatient (IN) | payer OTHER, MEDICARE ==
[~2017-03-29] VITALS: Ht 157.5 cm; Wt 67.6 kg
--- NOTE | ~2017-03-29 | EKG ---
[address] [place] [address] ELECTROCARDIOGRAM REPORT Name: JAYLEN BORJA Room #: 311-P ADM IN M.R.#: [id number] Admission: 03/29/17 Attend Phys: Kevin Trinidad MD Discharge: Date of : 34 Report #: [id number] THIS REPORT FOR: //name// 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 : 1935 Requested By: Cam Cordova Order Number: [id number] MD: Miguel A Vidal Measurements Intervals [place] Rate: 84 P: [place]: QRS: 37 QRSD: 81 T: 59 QT: 457 QTc: 541 Interpretive Statements Atrial fibrillation Low voltage, extremity leads Anteroseptal infarct, old Nonspecific ST and T wave abnormality Compared to ECG 03/06/2017 09:11:14 No significant change was found Electronically Signed On 04-03-2017 8:58:04 CDT by Miguel A Vidal [email or web address] <ELECTRONICALLY SIGNED> By: Miguel A Vidal MD, [facility] 04/03/17 0858 1524 1524 Miguel A Vidal MD, [facility] /EPI
--- NOTE | ~2017-03-29 | S ---
[facility] [place] [address] SURGICAL PATH RPT PROCEDURE Name: JAYLEN FARRAR Room #: 311-P ADM IN M.R.#: [id number] Admission: 03/29/17 Date of : 33 Discharge: Report #: [id number] Path Case #: [id number] PATHOLOGY REPORT COLLECTION DATE: 04/01/2017 RECEIVED DATE: 04/01/2017 SUBMITTING PHYS: Dr. Oumou Cason OTHER PHYS: Dr. Kevin Woodson SPECIMEN(S) RECEIVED: A.Proximal ascending colon * * * * * * * * * * * * FINAL DIAGNOSIS: Large intestinal mucosa, proximal ascending colon, endoscopic biopsy: - Compatible with an inflamed hyperplastic polyp. - Negative for dysplasia. (IUV:mml; 04/03/2017) PATHOLOGIST: Annette Nelson M.D. REPORT ELECTRONICALLY SIGNED BY: Annette Nelson M.D. DATE/TIME: 04/03/2017 14:23 * * * * * * * * * * * * GROSS PATHOLOGY: Received in formalin labeled "Jaylen Farrar, proximal ascending colon," are 5 segments of neves soft tissue measuring 1.3 x 0.2 x 0.2 cm in aggregate dimensions and ranging from 0.1 to 0.5 cm in maximum dimension. The specimen is submitted entirely in cassette A1. (ISSA; 04/02/2017) CLINICAL HISTORY: Anemia INITIAL CPT CODE(S): A; 38200 Professional services performed by [facility] at [facility] [address] [place] [address] Technical services performed by [facility] at [address] [place] [id number]. [facility] [address] [place] [address] SURGICAL PATH RPT PROCEDURE Name: JAYLEN FARRAR Room #: 311-P ADM IN M.R.#: [id number] Admission: 03/29/17 Date of : 34 Discharge: Report #: [id number] Path Case #: [id number] [address] PHONE: [phone] DIRECTOR: Jonh Mullins M.D. * * * END OF REPORT * * *
[2017-03-29 16:23] VITALS: BP 140/51
[~2017-03-29 16:23] MED LIST changes: +ADULT LOW DOSE81 MG PO; +CARAFATE 11 GM/10 M1 PO; +CARDIZEM CD120 MG PO; +FLOMAX0.4 MG PO; +LIPITOR10 MG PO; +PANTOPRAZOLE SO40 M1 PO; +VANCOMYCIN100 MG/ML PO
[2017-03-29 17:22] LABS: ABSOLUTE NEUTROPHILS 6.8 thou/uL (1.4-8.2); BASOPHILS 1.4 % (0.0-2.0); EOSINOPHILS 0.5 % (0.0-3.0); LYMPHOCYTES 16.2 % (24.0-44.0); MCH 31.2 pg (26.0-34.0); MCHC 33.2 g/dL (28.0-37.0); MONOCYTES 9.9 % (1.0-8.0); PLATELET COUNT 445 thou/uL (150-400); RBC 1.94 mil/uL (4.20-5.00); RDW 17.6 % (10.5-14.5); WBC 9.4 thou/uL (4.0-11.0)
[2017-03-29 17:23] LABS: MANUAL DIFF NO
[2017-03-29 17:24] LABS: HEMATOCRIT 18.3 % (37.0-47.0)
[2017-03-29 17:25] LABS: HEMOGLOBIN 6.1 gm/dL (12.0-15.0)
[2017-03-29 17:36] LABS: CREATININE 0.9 mg/dL (0.6-1.0); POTASSIUM 3.2 mmol/L (3.5-5.1)
[2017-03-29 17:41] LABS: ALBUMIN 2.3 g/dL (3.4-5.0); TOTAL BILIRUBIN 0.2 mg/dL (<0.1-1.0); TOTAL PROTEIN 6.2 g/dL (6.4-8.2)
[2017-03-29 17:48] LABS: URINE BILIRUBIN NEGATIVE (Negative); URINE BLOOD TRACE (Negative); URINE COLOR YELLOW; URINE GLUCOSE-RANDOM* NEGATIVE (Negative); URINE KETONES NEGATIVE (Negative); URINE LEUKOCYTES-REFLEX 3+ (Negative); URINE PROTEIN (DIPSTICK) TRACE (Negative); URINE UROBILINOGEN 0.2 E.U./dl (0.2-1.0)
[2017-03-29 18:01] LABS: SQUAMOUS None Seen /LPF (0-3); URINE WBC-REFLEX >25 Many /HPF (0-5)
[2017-03-29 18:02] LABS: CASTS None Seen /LPF (None Seen); CRYSTALS None Seen /LPF (None Seen); URINE RBC 0-2 Rare /HPF (0-2)
[2017-03-29 19:07] VITALS: BP 144/48
[2017-03-29 19:42] VITALS: BP 139/50
[2017-03-29 21:34] VITALS: BP 146/47
[2017-03-29] MEDS ORDERED: CARTIA XT120 M1 PO (21:48)
[2017-03-29] MEDS ORDERED: LASIX 40 MG TAB40 M2 PO (21:56)
[2017-03-29] MEDS ORDERED: MAGOX 400400 MG PO (21:56)
[2017-03-29] MEDS ORDERED: KLOR-CON 1010 MEQ PO (21:57)
[2017-03-30 00:23] VITALS: BP 144/59
[2017-03-30] MEDS ORDERED: FLORANEX TABLE1 EACH PO (02:26)
[2017-03-30 04:27] VITALS: BP 122/51
[2017-03-30 05:12] LABS: HEMATOCRIT 20.5 % (37.0-47.0); HEMOGLOBIN 7.1 gm/dL (12.0-15.0); MCH 31.7 pg (26.0-34.0); MCHC 34.4 g/dL (28.0-37.0); MCV 92.4 fL (80.0-100.0); RBC 2.22 mil/uL (4.20-5.00); RDW 17.1 % (10.5-14.5); WBC 10.8 thou/uL (4.0-11.0)
[2017-03-30 05:15] LABS: CALCIUM 8.5 mg/dL (8.5-10.1); CREATININE 0.6 mg/dL (0.6-1.0); POTASSIUM 3.1 mmol/L (3.5-5.1)
[2017-03-30 08:27] VITALS: BP 138/63
[2017-03-30 16:20] VITALS: BP 144/50
[2017-03-30 20:00] VITALS: BP 138/65
[2017-03-31 04:00] VITALS: BP 142/58
[2017-03-31 04:33] LABS: WBC 11.7 thou/uL (4.0-11.0)
[2017-03-31 04:35] LABS: MCHC 33.2 g/dL (28.0-37.0); MCV 93.3 fL (80.0-100.0); RBC 1.9 mil/uL (4.20-5.00)
[2017-03-31 04:44] LABS: HEMATOCRIT 17.7 % (37.0-47.0); HEMOGLOBIN 5.9 gm/dL (12.0-15.0)
[2017-03-31 04:46] LABS: CALCIUM 8.3 mg/dL (8.5-10.1); CREATININE 0.6 mg/dL (0.6-1.0); POTASSIUM 3.1 mmol/L (3.5-5.1)
[2017-03-31 05:37] VITALS: BP 131/53
[2017-03-31 08:00] VITALS: BP 106/51
[2017-03-31 10:52] VITALS: BP 105/56; BP 116/48; BP 139/70
[2017-03-31 16:00] VITALS: BP 108/47
[2017-03-31 19:23] LABS: HEMATOCRIT 29.1 % (37.0-47.0); HEMOGLOBIN 9.6 gm/dL (12.0-15.0)
[2017-03-31 20:05] VITALS: BP 139/67
[2017-04-01 03:40] VITALS: BP 111/54
[2017-04-01 04:07] LABS: CALCIUM 8.4 mg/dL (8.5-10.1); CREATININE 0.5 mg/dL (0.6-1.0); POTASSIUM 3.3 mmol/L (3.5-5.1)
[2017-04-01 04:23] LABS: HEMATOCRIT 24.9 % (37.0-47.0); HEMOGLOBIN 8.3 gm/dL (12.0-15.0); MCH 29.9 pg (26.0-34.0); MCHC 33.1 g/dL (28.0-37.0); MCV 90.4 fL (80.0-100.0); RBC 2.76 mil/uL (4.20-5.00); RDW 17.2 % (10.5-14.5); WBC 11.3 thou/uL (4.0-11.0)
[2017-04-01 07:46] VITALS: BP 122/52
[2017-04-01 16:44] VITALS: BP 143/84
[2017-04-01 20:20] VITALS: BP 124/70
[2017-04-02 05:20] VITALS: BP 119/68
[2017-04-02 05:36] LABS: HEMATOCRIT 25.8 % (37.0-47.0); HEMOGLOBIN 8.7 gm/dL (12.0-15.0); MCH 30.4 pg (26.0-34.0); MCHC 33.9 g/dL (28.0-37.0); MCV 89.7 fL (80.0-100.0); RBC 2.87 mil/uL (4.20-5.00); RDW 17.5 % (10.5-14.5); WBC 9.9 thou/uL (4.0-11.0)
[2017-04-02 05:50] LABS: CALCIUM 8.5 mg/dL (8.5-10.1); CREATININE 0.5 mg/dL (0.6-1.0); POTASSIUM 3.3 mmol/L (3.5-5.1)
[2017-04-02 08:00] VITALS: BP 153/73
[2017-04-02 16:00] VITALS: BP 146/62
[2017-04-02 16:13] LABS: URINE BILIRUBIN NEGATIVE (Negative); URINE BLOOD NEGATIVE (Negative); URINE COLOR YELLOW; URINE GLUCOSE-RANDOM* NEGATIVE (Negative); URINE KETONES NEGATIVE (Negative); URINE LEUKOCYTES-REFLEX NEGATIVE (Negative); URINE PROTEIN (DIPSTICK) NEGATIVE (Negative); URINE UROBILINOGEN 0.2 E.U./dl (0.2-1.0)
[2017-04-02 20:00] VITALS: BP 135/62
[2017-04-03 04:41] VITALS: BP 143/70
[2017-04-03 04:58] LABS: CALCIUM 8.5 mg/dL (8.5-10.1); CREATININE 0.5 mg/dL (0.6-1.0); MAGNESIUM 1.5 mg/dL (1.8-2.4)
[2017-04-03 05:02] LABS: ABSOLUTE NEUTROPHILS 6.1 thou/uL (1.4-8.2); BASOPHILS 0.9 % (0.0-2.0); EOSINOPHILS 1.7 % (0.0-3.0); HEMATOCRIT 25.9 % (37.0-47.0); HEMOGLOBIN 8.8 gm/dL (12.0-15.0); LYMPHOCYTES 14.2 % (24.0-44.0); MCH 30.3 pg (26.0-34.0); MCHC 34.1 g/dL (28.0-37.0); MCV 88.8 fL (80.0-100.0); MONOCYTES 11.4 % (1.0-8.0); PLATELET COUNT 245 thou/uL (150-400); POLYS 71.8 % (36.0-66.0); RBC 2.91 mil/uL (4.20-5.00); RDW 16.9 % (10.5-14.5); WBC 8.6 thou/uL (4.0-11.0)
[2017-04-03 05:04] LABS: MANUAL DIFF NO
[2017-04-03 08:00] VITALS: BP 137/59
[2017-04-03] MEDS ORDERED: DUONEB 2.5-0.5 M3 ML INH (12:34)
== END 2017-04-03 15:20 | DRG 377 ==
LOC: ER 16:23 → 3N 17:39 → EROBS 17:39 → 3N 20:16
PROVIDERS: Hospitalist; Nurse Practitioner; Nurse Practitioner Adult Health; Physician Assistant
PROC: 30233N1 Transfusion of Nonautologous Red Blood Cells into Peripheral Vein, Percutaneous Approach (ICD-10-PCS; 2017-03-29)
PROC: 0DJ08ZZ Inspection of Upper Intestinal Tract, Via Natural or Artificial Opening Endoscopic (ICD-10-PCS; principal; 2017-04-01)
PROC: 0DBK8ZX Excision of Ascending Colon, Via Natural or Artificial Opening Endoscopic, Diagnostic (ICD-10-PCS; principal; 2017-04-01)
DX: K92.2 Gastrointestinal hemorrhage, unspecified (principal); E43 Unspecified severe protein-calorie malnutrition; A04.7 Enterocolitis due to Clostridium difficile; N39.0 Urinary tract infection, site not specified; I48.91 Unspecified atrial fibrillation; N39.3 Stress incontinence (female) (male); M35.3 Polymyalgia rheumatica; E03.9 Hypothyroidism, unspecified; K21.9 Gastro-esophageal reflux disease without esophagitis; D64.9 Anemia, unspecified; E87.6 Hypokalemia; I50.9 Heart failure, unspecified; I11.0 Hypertensive heart disease with heart failure; N13.9 Obstructive and reflux uropathy, unspecified; Z96.642 Presence of left artificial hip joint; Z87.11 Personal history of peptic ulcer disease; Z90.710 Acquired absence of both cervix and uterus; Z86.73 Personal history of transient ischemic attack (TIA), and cerebral infarction without residual deficits; Z87.01 Personal history of pneumonia (recurrent); Z68.27 Body mass index [BMI] 27.0-27.9, adult; Z98.42 Cataract extraction status, left eye; Z98.41 Cataract extraction status, right eye; Z87.891 Personal history of nicotine dependence; Z79.82 Long term (current) use of aspirin; Z79.899 Other long term (current) drug therapy; Z88.1 Allergy status to other antibiotic agents; Z82.3 Family history of stroke; Z80.8 Family history of malignant neoplasm of other organs or systems
CPT/HCPCS: 10094; 10096; 62110; 62900; 70005

== ENCOUNTER 2017-04-03 11:36 | Inpatient (IN) | payer OTHER, MEDICARE ==
[~2017-04-03] VITALS: Ht 152.4 cm; Wt 69.1 kg
--- NOTE | ~2017-04-03 | PLAN ---
[facility] [place] [address] REHAB UNIT PLAN OF CARE Name: JAYLEN BORJA Room #: 504-1 DIS IN M.R.#: [id number] Admission: 04/03/17 Attend Phys: Rodriguez Lagunas MD Discharge: 04/17/17 Date of : 34 Report #: [id number] THIS REPORT FOR: //name// CC: Rodriguez [facility] DATE OF SERVICE: 04/08/2017 HISTORY OF PRESENT ILLNESS: The patient is seen back today in followup. She is in no distress. PHYSICAL EXAMINATION: Last recorded temperature 36.4, pulse 91, respirations 20, blood pressure 138/58. The patient is alert, pleasant. HEENT appeared to be benign. Cranial nerves were grossly intact. She has been working in her therapies with transfers, standby assistance and gait contact guard 250 feet with a front-wheeled walker. Standby assist with bed mobility. Lower body dressing is mod assist. Upper body dressing is min assist. She has been running some high residuals voiding 250 with 800 mL as a residua. She is on Flomax. Urology has been consulted. ASSESSMENT: 1. Medical complexity with generalized debilitation. 2. Gastric/duodenal ulcer. 3. Clostridium difficile. 4. Congestive heart failure with shortness of air. 5. Recent urinary tract infection. 6. Urinary retention. She has a prior history of bowel and bladder incontinence, status post pelvic radiation for endometrial cancer. Urology has been consulted to follow up. She continues on the Flomax. She is showing significant urinary retention. PLAN: The overall plan of care is based on the preadmission screen, post-admission physician evaluation and information garnered from therapy assessments. 1. Estimated length of stay is probably one week. 2. Medical prognosis is reasonably good. 3. Anticipated interventions includes the interdisciplinary acute inpatient rehabilitation program with the goal of maximizing her functional independence, so that she can hopefully return back to her prior living situation. 4. Anticipated functional outcomes would be for the patient to become modified independent with transfers, mobility and ADLs, so that she can hopefully return back to her prior living situation. 5. Discharge destination will be back to the home setting where [facility]. She does have involved neighbors and a durable power of litigation attorney associate that can assist. 6. Expected therapy by discipline includes PT and OT 1-1/2 [place] [address] REHAB UNIT PLAN OF CARE Name: HUONGJAYLEN J Room #: 504-1 [facility] IN [facility].#: [id number] Admission: 04/03/17 Attend Phys: Rodriguez Lagunas MD Discharge: 04/17/17 Date of : 34 Report #: [id number] five days a week throughout the duration of the acute inpatient rehabilitation stay. <ELECTRONICALLY SIGNED> By: Rodriguez Lagunas MD 04/23/17 1350 0940 1023 Rodriguez Lagunas MD /shandra
--- NOTE | ~2017-04-03 | HC ---
[facility] [place] [address] CONSULTATION Name: JAYLEN BORJA Room #: 504-1 ADM IN M.R.#: [id number] Admission: 04/03/17 Attend Phys: Rodriguez Lagunas MD Discharge: Date of : 34 Report #: [id number] THIS REPORT FOR: //name// CC: Rodriguez Morley DATE OF SERVICE: 04/11/2017 ATTENDING PHYSICIAN: Rodriguez Lagunas M.D. CLINICAL PRESENTATION: The patient is an 81-year-old female admitted to [facility] Rehabilitation Unit for comprehensive inpatient rehabilitation program to assist with functional mobility, activities of daily living and self-care and mental status, secondary to medical complexity and generalized debilitation. She was originally admitted with weakness. Her medical problem list include acute kidney failure, anemia, back pain, C. difficile, duodenal ulcer, GI bleed, leukocytosis, small bowel obstruction, septic shock, syncope, urinary tract infection and weakness. The patient accurately described events preceding her hospitalization. She states that she had returned home for a grocery store when she fell at her home and was unable to stand. She remained on the floor from late afternoon to oil bay technician hours until she was able to find her phone and call 911 for assistance. A complete description of her medical condition and history along with medications can be found in her medical record. Neuropsychological consultation was requested to provide assistance in the assessment of cognitive and emotional status and to provide recommendations and services. Prior to this most recent admission, she was living independently in a town home. The patient reports that she was independent in meeting instrumental activities of daily living. She was driving, managing her own bills, nutrition and medications. The patient is a single female without children. 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 TECHNIQUES UTILIZED: Clinical interview, review of medical records, staff consultation and behavioral observation, mini mental status exam 2 standard version, clock drawing, Calibrated Ideational Fluency Assessment (letter and category) and brief abstract reasoning test. EXAMINATION FINDINGS: The patient was alert and cooperative with the assessment. There is no evidence of aphasia. Her thoughts are logical and goal oriented. There is no evidence of thought disorder. She does not report [facility] [address] [place] [address] CONSULTATION Name: JAYLEN BORJA Room #: 504-1 [facility] IN .R.#: [id number] Admission: 04/03/17 Attend Phys: Rodriguez Lagunas MD Discharge: Date of : 34 Report #: [id number] auditory or visual hallucinations. Her symptoms include variability in word finding and fatigue. She indicates having been more fatigued the last several months prior to this most recent medical event. There was no reported difficulty with memory, sleep, appetite, depression, anxiety or use of alcohol. Social support is described as good. Her performance on the mini mental status exam 2 standard version is within normal limits with a raw score of 15 of 16. The MMSE 2 standard version was within normal limits with a raw score of 28 of 30. The patient had difficulty in copying a simple geometric design. She does have upper extremity weakness, which contributes to difficulty in spatial construction. Her performance in letter fluency was extremely low with a raw score 14 and a T score of 26, which is at the 1st percentile. Category fluency was better maintained with a T score of 42 and percentile rank of 21. Overall, verbal fluency was in the borderline range with a T score of 32 and percentile rank of 4. Deficits in verbal fluency often are associated with higher level executive functioning. She is presenting with variability in cognition that suggests deficits and planning and problem solving. Abstract reasoning is within normal limits with a raw score of 8/8. DIAGNOSTIC IMPRESSION: Mild neurocognitive disorder, unspecified, without behavior disorder. RECOMMENDATIONS: While she is alert and oriented, subtle deficits are suggested in higher level executive functioning, which affects planning and problem solving. She may benefit from counseling to address her current living arrangements. A assisted community with options for additional services as necessary. The patient is single without children and has limited support. She does not present with depression or anxiety at this time. Thank you very much for allowing me to provide the consultation on this patient. <ELECTRONICALLY SIGNED> By: Celestino Bell, PhD 04/11/17 1434 1236 1331 Celestino Bell, PhD /nt
[~2017-04-03 11:36] MED LIST changes: +CARTIA XT120 M1 PO; +FLORANEX TABLE1 EACH PO; +KLOR-CON 1010 MEQ PO; +LASIX 40 MG TAB40 M2 PO; +MAGOX 400400 MG PO
[2017-04-03] MEDS ORDERED: DUONEB 2.5-0.5 M3 ML INH (12:34)
[2017-04-03 16:30] VITALS: BP 149/82
[2017-04-03 21:11] VITALS: BP 152/65
[2017-04-04 04:56] LABS: HEMATOCRIT 27.1 % (37.0-47.0); HEMOGLOBIN 9.2 gm/dL (12.0-15.0); MCH 30.1 pg (26.0-34.0); MCV 88.6 fL (80.0-100.0); RBC 3.06 mil/uL (4.20-5.00); RDW 16.3 % (10.5-14.5); WBC 8.1 thou/uL (4.0-11.0)
[2017-04-04 05:13] LABS: CALCIUM 8.7 mg/dL (8.5-10.1); CREATININE 0.5 mg/dL (0.6-1.0); MAGNESIUM 1.5 mg/dL (1.8-2.4); POTASSIUM 3.1 mmol/L (3.5-5.1)
[2017-04-04 06:11] VITALS: BP 168/61
[2017-04-04 16:00] VITALS: BP 120/70
[2017-04-05 05:02] VITALS: BP 133/44
[2017-04-05 06:06] LABS: HEMATOCRIT 27.3 % (37.0-47.0); MCH 29.6 pg (26.0-34.0); MCHC 32.8 g/dL (28.0-37.0); MCV 90.2 fL (80.0-100.0); RBC 3.03 mil/uL (4.20-5.00); RDW 16.1 % (10.5-14.5); WBC 7.3 thou/uL (4.0-11.0)
[2017-04-05 06:12] LABS: CALCIUM 8.6 mg/dL (8.5-10.1); CREATININE 0.6 mg/dL (0.6-1.0)
[2017-04-05 06:17] LABS: POTASSIUM 2.8 mmol/L (3.5-5.1)
[2017-04-05 09:44] VITALS: BP 129/56
[2017-04-05 13:55] LABS: MAGNESIUM 1.6 mg/dL (1.8-2.4); POTASSIUM 3.9 mmol/L (3.5-5.1)
[2017-04-05 16:00] VITALS: BP 110/70
[2017-04-05 20:37] VITALS: BP 130/70
[2017-04-06 05:37] VITALS: BP 120/49
[2017-04-06 06:10] LABS: MAGNESIUM 1.5 mg/dL (1.8-2.4); POTASSIUM 3.3 mmol/L (3.5-5.1)
[2017-04-06 13:11] LABS: MAGNESIUM 1.6 mg/dL (1.8-2.4); POTASSIUM 3.7 mmol/L (3.5-5.1)
[2017-04-06 16:00] VITALS: BP 127/64
[2017-04-06 16:08] LABS: URINE BILIRUBIN NEGATIVE (Negative); URINE BLOOD 2+ (Negative); URINE COLOR YELLOW; URINE GLUCOSE-RANDOM* NEGATIVE (Negative); URINE KETONES NEGATIVE (Negative); URINE LEUKOCYTES-REFLEX 3+ (Negative); URINE PROTEIN (DIPSTICK) 1+ (Negative); URINE UROBILINOGEN 0.2 E.U./dl (0.2-1.0)
[2017-04-06 16:18] LABS: CASTS None Seen /LPF (None Seen); CRYSTALS None Seen /LPF (None Seen); SQUAMOUS None Seen /LPF (0-3); URINE RBC None Seen /HPF (0-2); URINE WBC-REFLEX >25 Many /HPF (0-5)
[2017-04-06 20:00] VITALS: BP 126/58
[2017-04-07 04:34] LABS: HEMATOCRIT 25.1 % (37.0-47.0); HEMOGLOBIN 8.4 gm/dL (12.0-15.0); MCH 29.9 pg (26.0-34.0); MCHC 33.7 g/dL (28.0-37.0); MCV 88.9 fL (80.0-100.0); RBC 2.82 mil/uL (4.20-5.00); RDW 16.1 % (10.5-14.5); WBC 7.7 thou/uL (4.0-11.0)
[2017-04-07 04:45] LABS: CALCIUM 8.8 mg/dL (8.5-10.1); CREATININE 0.6 mg/dL (0.6-1.0); MAGNESIUM 1.6 mg/dL (1.8-2.4); POTASSIUM 3.8 mmol/L (3.5-5.1)
[2017-04-07 05:23] VITALS: BP 132/80
[2017-04-07 16:00] VITALS: BP 133/58
[2017-04-07 19:29] VITALS: BP 138/68
[2017-04-08 05:24] VITALS: BP 128/72
[2017-04-08 06:36] LABS: MAGNESIUM 1.7 mg/dL (1.8-2.4); POTASSIUM 3.9 mmol/L (3.5-5.1)
[2017-04-08 18:05] VITALS: BP 125/40
[2017-04-08 22:11] VITALS: BP 140/80
[2017-04-09 03:05] LABS: ABSOLUTE NEUTROPHILS 4.6 thou/uL (1.4-8.2); BASOPHILS 1.6 % (0.0-2.0); EOSINOPHILS 3.8 % (0.0-3.0); HEMOGLOBIN 8.9 gm/dL (12.0-15.0); LYMPHOCYTES 21.9 % (24.0-44.0); MCH 29.5 pg (26.0-34.0); MCHC 33.1 g/dL (28.0-37.0); MCV 88.9 fL (80.0-100.0); MONOCYTES 10.3 % (1.0-8.0); PLATELET COUNT 311 thou/uL (150-400); POLYS 62.4 % (36.0-66.0); RBC 3.03 mil/uL (4.20-5.00); RDW 15.8 % (10.5-14.5); WBC 7.4 thou/uL (4.0-11.0)
[2017-04-09 03:08] LABS: MANUAL DIFF NO
[2017-04-09 03:14] LABS: CALCIUM 9.1 mg/dL (8.5-10.1); CREATININE 0.7 mg/dL (0.6-1.0); POTASSIUM 3.6 mmol/L (3.5-5.1)
[2017-04-09 05:13] VITALS: BP 142/45
[2017-04-09 16:00] VITALS: BP 110/60
[2017-04-10 05:18] LABS: MAGNESIUM 1.8 mg/dL (1.8-2.4); POTASSIUM 3.3 mmol/L (3.5-5.1)
[2017-04-10 06:09] VITALS: BP 106/47
[2017-04-10 16:40] VITALS: BP 108/62
[2017-04-11 05:01] LABS: MAGNESIUM 1.9 mg/dL (1.8-2.4); POTASSIUM 3.2 mmol/L (3.5-5.1)
[2017-04-11 05:19] VITALS: BP 132/62
[2017-04-11 15:42] VITALS: BP 128/70
[2017-04-12 05:09] LABS: HEMATOCRIT 24.3 % (37.0-47.0); HEMOGLOBIN 8.1 gm/dL (12.0-15.0); MCH 29.6 pg (26.0-34.0); MCHC 33.2 g/dL (28.0-37.0); MCV 89.1 fL (80.0-100.0); RBC 2.73 mil/uL (4.20-5.00); RDW 15.9 % (10.5-14.5); WBC 7.6 thou/uL (4.0-11.0)
[2017-04-12 05:16] LABS: MAGNESIUM 1.8 mg/dL (1.8-2.4); POTASSIUM 3.6 mmol/L (3.5-5.1)
[2017-04-12 06:00] VITALS: BP 116/40
[2017-04-12 07:55] VITALS: BP 142/64
[2017-04-12 16:05] VITALS: BP 138/71
[2017-04-13 04:13] LABS: MAGNESIUM 1.9 mg/dL (1.8-2.4); POTASSIUM 3.3 mmol/L (3.5-5.1)
[2017-04-13 06:25] VITALS: BP 130/80
[2017-04-13 08:39] VITALS: BP 150/49
[2017-04-13 16:04] VITALS: BP 104/47
[2017-04-14 03:53] LABS: ABSOLUTE NEUTROPHILS 6.3 thou/uL (1.4-8.2); BASOPHILS 1.3 % (0.0-2.0); EOSINOPHILS 2.8 % (0.0-3.0); HEMATOCRIT 25.1 % (37.0-47.0); HEMOGLOBIN 8.3 gm/dL (12.0-15.0); LYMPHOCYTES 12.2 % (24.0-44.0); MCH 29.4 pg (26.0-34.0); MCHC 33.1 g/dL (28.0-37.0); MCV 88.7 fL (80.0-100.0); MONOCYTES 10.4 % (1.0-8.0); PLATELET COUNT 295 thou/uL (150-400); POLYS 73.3 % (36.0-66.0); RBC 2.84 mil/uL (4.20-5.00); WBC 8.6 thou/uL (4.0-11.0)
[2017-04-14 03:59] LABS: MANUAL DIFF NO
[2017-04-14 04:08] LABS: CALCIUM 9.1 mg/dL (8.5-10.1); CREATININE 0.7 mg/dL (0.6-1.0)
[2017-04-14 04:09] VITALS: BP 115/53
[2017-04-14 07:39] VITALS: BP 110/80
[2017-04-15 05:41] VITALS: BP 147/69
[2017-04-15 05:58] LABS: MAGNESIUM 1.8 mg/dL (1.8-2.4); POTASSIUM 3.6 mmol/L (3.5-5.1)
[2017-04-15 16:16] VITALS: BP 126/41
[2017-04-15 20:21] VITALS: BP 112/47
[2017-04-16 03:27] VITALS: BP 115/54
[2017-04-16 16:00] VITALS: BP 107/45
[2017-04-17 04:30] VITALS: BP 110/48
[2017-04-17 06:02] LABS: BASOPHILS 1.1 % (0.0-2.0); EOSINOPHILS 3.7 % (0.0-3.0); HEMATOCRIT 24.2 % (37.0-47.0); HEMOGLOBIN 8.1 gm/dL (12.0-15.0); LYMPHOCYTES 11.3 % (24.0-44.0); MANUAL DIFF NO; MCH 29.4 pg (26.0-34.0); MCHC 33.6 g/dL (28.0-37.0); MCV 87.5 fL (80.0-100.0); MONOCYTES 9.7 % (1.0-8.0); PLATELET COUNT 347 thou/uL (150-400); POLYS 74.2 % (36.0-66.0); RBC 2.77 mil/uL (4.20-5.00); WBC 8.1 thou/uL (4.0-11.0)
[2017-04-17 06:10] LABS: CREATININE 0.8 mg/dL (0.6-1.0); MAGNESIUM 1.7 mg/dL (1.8-2.4); POTASSIUM 3.7 mmol/L (3.5-5.1)
[2017-04-17] MEDS ORDERED: LASIX 40 MG TAB40 M1 PO (10:55)
== END 2017-04-17 13:34 | DRG 948 ==
PROVIDERS: Hospitalist; Nurse Practitioner; Nurse Practitioner Acute Care; Physical Medicine & Rehabilitation
DX: R53.81 Other malaise (principal); N39.0 Urinary tract infection, site not specified; K92.2 Gastrointestinal hemorrhage, unspecified; A04.7 Enterocolitis due to Clostridium difficile; N13.30 Unspecified hydronephrosis; K25.9 Gastric ulcer, unspecified as acute or chronic, without hemorrhage or perforation; K26.9 Duodenal ulcer, unspecified as acute or chronic, without hemorrhage or perforation; I50.9 Heart failure, unspecified; R33.9 Retention of urine, unspecified; G31.84 Mild cognitive impairment of uncertain or unknown etiology; I48.91 Unspecified atrial fibrillation; Z66 Do not resuscitate; I11.0 Hypertensive heart disease with heart failure; K21.9 Gastro-esophageal reflux disease without esophagitis; Z96.642 Presence of left artificial hip joint; D64.9 Anemia, unspecified; E03.9 Hypothyroidism, unspecified; E87.6 Hypokalemia; Z85.89 Personal history of malignant neoplasm of other organs and systems; Z88.1 Allergy status to other antibiotic agents; Z79.899 Other long term (current) drug therapy; Z90.710 Acquired absence of both cervix and uterus; Z86.73 Personal history of transient ischemic attack (TIA), and cerebral infarction without residual deficits; Z98.42 Cataract extraction status, left eye; Z98.41 Cataract extraction status, right eye; Z87.01 Personal history of pneumonia (recurrent); Z87.891 Personal history of nicotine dependence; Z80.9 Family history of malignant neoplasm, unspecified; Z82.3 Family history of stroke
CPT/HCPCS: 10092

== ENCOUNTER 2017-12-07 11:45 | Inpatient (IN) | payer OTHER, MEDICARE ==
[~2017-12-07] VITALS: Ht 157.5 cm; Wt 58.1 kg
--- NOTE | ~2017-12-07 | HC ---
[facility] [place] [address] CONSULTATION Name: JAYLEN BORJA Room #: 462-P ADM IN M.R.#: [id number] Admission: 12/07/17 Attend Phys: Jatin Chance MD Discharge: Date of : 34 Report #: [id number] THIS REPORT FOR: //name// CC: Dougie Chance DATE OF SERVICE: 12/08/2017 HISTORY OF PRESENT ILLNESS: The patient is an 82-year-old white female who tripped and sustained some right hip pain. She was unable to ambulate. She was admitted to [facility]. CT of the pelvis was negative. She has been getting some pain medication. She notes the pain is a little bit better. She just started to be able to get up and ambulate a short distance and therapy. We are seeing her in rehabilitation medicine consultation. PAST MEDICAL HISTORY: Gastric duodenal ulcer, CHF, C. diff, urinary retention with overflow incontinence in the past. She has a prior history of septic shock, small-bowel obstruction. ALLERGIES: CIPROFLOXACIN. HABITS: Former smoker, one and half packs per day for 30 years, quit greater than a year ago. No alcohol abuse. FAMILY HISTORY: CVA with her mother, father had cancer. SOCIAL HISTORY: Lives in a town house alone, two steps in. She used to front-wheeled walker at home, cane in the community. Note, she can stand one floor/main floor. REVIEW OF SYSTEMS: No current complaints of chest pain, shortness of breath, abdominal discomfort. PHYSICAL EXAMINATION: GENERAL: An 82-year-old white female in no obvious distress. VITAL SIGNS: Last recorded temperature 97.9, pulse 71, respirations 20, blood pressure 116/61. NEUROLOGIC: The patient is alert. HEAD, EYES, EARS, NOSE, AND THROAT: Appeared to be benign. Facies are symmetric. EXTREMITIES: She has functional range of motion of both upper extremities with some decrease at end range. Lower extremities, she notes she is moving that right hip, a little bit better. She has strength probably grade 4- to 3+/5 proximally lower extremities distally was probably a grade 4-. DTRs were trace to 1. She was able to sit to stand, contact guard. She did take three steps contact guard assistance. [address] [address] CONSULTATION Name: JAYLEN BORJA Room #: 2[facility].#: [id number] Admission: 12/07/17 Attend Phys: Jatin Chance MD Discharge: Date of : 34 Report #: [id number] ASSESSMENT: An 82-year-old white female with the following problems: 1. Right hip pain after falling. 2. Gait instability. 3. Premorbid walker ambulator. 4. Hypokalemia. Potassium is 2.8 on admission. 5. History of C. diff. 6. Chronic peripheral neuropathy. 7. Recent diagnosis of gastric ulcers. 8. Atrial fibrillation. PLAN: At this point, I do not see that she would meet diagnostic criteria for another acute in-hospital inpatient rehabilitation stay. We will see how she does in therapies as her pain is improving. PT and OT are to continue to work with her at this time and we will follow from a distance. Thank you for asking us to assist in this patient's care. By: 1120 1838 Rodriguez Lagunas MD /PMT
[~2017-12-07 11:45] MED LIST changes: +DUONEB 2.5-0.5 M3 ML INH; +LASIX 40 MG TAB40 M1 PO
[2017-12-07 11:57] VITALS: BP 118/73
[2017-12-07] MEDS ORDERED: KEFLEX500 M1 PO (14:40)
[2017-12-07] MEDS ORDERED: CARDIZEM CD180 MG PO (14:40)
[2017-12-07] MEDS ORDERED: FLAGYL500 MG PO (14:40)
[2017-12-07] MEDS ORDERED: SYNTHROID75 MCG PO (14:40)
[2017-12-07] MEDS ORDERED: METOPROLOL TART25 MG PO (14:41)
[2017-12-07 14:47] VITALS: BP 118/73
[2017-12-07 15:11] VITALS: BP 152/83
[2017-12-07 15:14] LABS: ABSOLUTE NEUTROPHILS 8.9 thou/uL (1.4-8.2); BASOPHILS 0.5 % (0.0-2.0); EOSINOPHILS 1.4 % (0.0-3.0); HEMATOCRIT 29.7 % (37.0-47.0); HEMOGLOBIN 9.8 gm/dL (12.0-15.0); LYMPHOCYTES 13.8 % (24.0-44.0); MCV 84.8 fL (80.0-100.0); MONOCYTES 8.8 % (1.0-8.0); PLATELET COUNT 277 thou/uL (150-400); POLYS 75.5 % (36.0-66.0); RDW 18.3 % (10.5-14.5); WBC 11.7 thou/uL (4.0-11.0)
[2017-12-07 15:20] LABS: CALCIUM 9.5 mg/dL (8.5-10.1); CREATININE 0.7 mg/dL (0.6-1.0)
[2017-12-07 15:21] LABS: POTASSIUM 2.8 mmol/L (3.5-5.1)
[2017-12-07 15:26] LABS: ALBUMIN 2.9 g/dL (3.4-5.0); TOTAL BILIRUBIN 0.3 mg/dL (<0.1-1.0); TOTAL PROTEIN 6.3 g/dL (6.4-8.2)
[2017-12-07 16:01] LABS: ANISOCYTOSIS 2+; OVALOCYTES OCCASIONAL
[2017-12-07 16:17] VITALS: BP 118/48
[2017-12-07 20:02] VITALS: BP 116/48
[2017-12-07 21:05] LABS: URINE BILIRUBIN NEGATIVE (Negative); URINE BLOOD NEGATIVE (Negative); URINE CLARITY CLEAR; URINE COLOR YELLOW; URINE GLUCOSE-RANDOM* NEGATIVE (Negative); URINE KETONES TRACE (Negative); URINE LEUKOCYTES-REFLEX TRACE (Negative); URINE NITRITE-REFLEX NEGATIVE (Negative); URINE PROTEIN (DIPSTICK) NEGATIVE (Negative); URINE UROBILINOGEN 0.2 E.U./dl (0.2-1.0)
[2017-12-08] VITALS: BP 113/48
[2017-12-08 02:47] VITALS: BP 112/50
[2017-12-08 08:22] VITALS: BP 116/61
[2017-12-08 09:14] LABS: BASOPHILS 1.1 % (0.0-2.0); EOSINOPHILS 3.2 % (0.0-3.0); HEMATOCRIT 28.2 % (37.0-47.0); HEMOGLOBIN 9.3 gm/dL (12.0-15.0); LYMPHOCYTES 19.7 % (24.0-44.0); MCHC 32.9 g/dL (28.0-37.0); MCV 85.3 fL (80.0-100.0); MONOCYTES 8.4 % (1.0-8.0); PLATELET COUNT 276 thou/uL (150-400); POLYS 67.6 % (36.0-66.0); RBC 3.31 mil/uL (4.20-5.00); RDW 18.1 % (10.5-14.5); WBC 8.9 thou/uL (4.0-11.0)
[2017-12-08 09:20] LABS: CALCIUM 8.8 mg/dL (8.5-10.1); CREATININE 0.6 mg/dL (0.6-1.0); MAGNESIUM 2.7 mg/dL (1.8-2.4); POTASSIUM 3.5 mmol/L (3.5-5.1)
[2017-12-08 16:37] VITALS: BP 102/40
[2017-12-08 19:52] VITALS: BP 113/52
[2017-12-09 04:48] VITALS: BP 155/64
[2017-12-09 07:01] LABS: ALBUMIN 2.6 g/dL (3.4-5.0); CALCIUM 8.9 mg/dL (8.5-10.1); CREATININE 0.7 mg/dL (0.6-1.0); POTASSIUM 3.5 mmol/L (3.5-5.1); TOTAL BILIRUBIN 0.3 mg/dL (<0.1-1.0); TOTAL PROTEIN 5.9 g/dL (6.4-8.2)
[2017-12-09 07:02] LABS: % SATURATION 9 % (20-39); IRON 22 ug/dL (50-170); TIBC 241 ug/dL (250-450)
[2017-12-09 07:31] LABS: TSH 5.477 uIU/mL (0.358-3.740)
[2017-12-09 09:06] VITALS: BP 127/54
[2017-12-09 16:20] VITALS: BP 127/54
[2017-12-09 16:21] VITALS: BP 98/66
[2017-12-09 19:55] VITALS: BP 125/50
[2017-12-10 03:23] VITALS: BP 112/65
[2017-12-10 08:41] VITALS: BP 128/60
[2017-12-10] MEDS ORDERED: VANCOMYCIN HCL10 GM PO (09:02)
[2017-12-10] MEDS ORDERED: HYDROCODONE-AP1 EAC6 PO (09:02)
[2017-12-10 09:50] LABS: HEMATOCRIT 31.4 % (37.0-47.0); HEMOGLOBIN 10.4 gm/dL (12.0-15.0); MCH 28.2 pg (26.0-34.0); MCHC 33.1 g/dL (28.0-37.0); MCV 85.3 fL (80.0-100.0); RBC 3.69 mil/uL (4.20-5.00); RDW 18.5 % (10.5-14.5); WBC 10.8 thou/uL (4.0-11.0)
[2017-12-10 09:57] LABS: CALCIUM 9.3 mg/dL (8.5-10.1); CREATININE 0.6 mg/dL (0.6-1.0); MAGNESIUM 1.8 mg/dL (1.8-2.4); POTASSIUM 4.4 mmol/L (3.5-5.1)
== END 2017-12-10 15:15 | disposition home health service (06) | DRG 555 ==
LOC: ER 11:45 → 4W 14:24 → EROBS 14:24 → 4W 15:35
PROVIDERS: Nurse Practitioner; Nurse Practitioner Family; Registered Nurse
DX: M25.552 Pain in left hip (principal); E43 Unspecified severe protein-calorie malnutrition; E87.6 Hypokalemia; Z96.642 Presence of left artificial hip joint; I48.91 Unspecified atrial fibrillation; K21.9 Gastro-esophageal reflux disease without esophagitis; I50.9 Heart failure, unspecified; E03.9 Hypothyroidism, unspecified; Z82.3 Family history of stroke; G62.9 Polyneuropathy, unspecified; D72.829 Elevated white blood cell count, unspecified; Z66 Do not resuscitate; Z96.649 Presence of unspecified artificial hip joint; W01.0XXA Fall on same level from slipping, tripping and stumbling without subsequent striking against object, initial encounter; Y93.89 Activity, other specified; Y92.89 Other specified places as the place of occurrence of the external cause; Y99.8 Other external cause status; Z98.42 Cataract extraction status, left eye; Z98.41 Cataract extraction status, right eye; Z86.73 Personal history of transient ischemic attack (TIA), and cerebral infarction without residual deficits; Z88.1 Allergy status to other antibiotic agents; Z87.891 Personal history of nicotine dependence; Z87.440 Personal history of urinary (tract) infections; Z90.710 Acquired absence of both cervix and uterus; Z85.42 Personal history of malignant neoplasm of other parts of uterus; I11.0 Hypertensive heart disease with heart failure
CPT/HCPCS: 10040

== ENCOUNTER 2018-01-04 18:45 | Inpatient (IN) | payer OTHER, MEDICARE ==
[~2018-01-04] VITALS: Ht 152.4 cm; Wt 56.7 kg
--- NOTE | ~2018-01-04 | HC ---
[facility] [place] [address] CONSULTATION Name: JAYLEN BORJA Room #: 220-P [facility] IN M.R.#: [id number] Admission: 01/04/18 Attend Phys: Nael Varela MD Discharge: 01/08/18 Date of : 34 Report #: [id number] THIS REPORT FOR: //name// CC: Nael Morley DATE OF SERVICE: 01/06/2018 HISTORY OF PRESENT ILLNESS: This patient was admitted through the Emergency Room with complaints of abdominal pain and found to have a distal mechanical small-bowel obstruction. She in addition has lytic changes in the left pelvic area suspicious for bony metastatic disease. Her complaints have not included sweats, chills, or fevers. She is passing gas and had a bowel movement yesterday. She is not vomiting and currently is being managed conservatively. PAST MEDICAL HISTORY: Significant for endometrial cancer dating to 1983, at which time she had a hysterectomy and postoperative radiation therapy. She has received no further treatment nor had any known recurrence of that original malignancy. She has had issues with the prior pelvic radiation associated with the previous hematuria. She tells me that she underwent a colonoscopy last year, which was negative for malignancy. She also is up-to-date on her mammograms. PAST MEDICAL HISTORY: Also, significant for earlier/recent hospitalization at [facility]. PAST SURGICAL HISTORY: She has had prior left hip replacement. SOCIAL HISTORY: She is a reformed smoker, stopping a year ago. 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 She denies drugs or alcohol use. ALLERGIES: CIPROFLOXACIN. MEDICATIONS: As listed on the MFR. REVIEW OF SYSTEMS: As in the history of present illness. PHYSICAL EXAMINATION: GENERAL: Shows alert white female. HEENT: Normocephalic. NECK: Supple. BREASTS: Show no suspicious masses. ABDOMEN: Soft. There is no palpable spleen. [facility] [address] [place] [address] CONSULTATION Name: JAYLEN BORJA Room #: 220-P [facility] IN [facility].#: [id number] Admission: 01/04/18 Attend Phys: Nael Varela MD Discharge: 01/08/18 Date of : 34 Report #: [id number] NEUROLOGIC: No focal localizing signs. PSYCHIATRIC: Not agitated or confused. SKIN: Normal turgor. LYMPHATICS: No supraclavicular adenopathy. LABORATORY STUDIES: Unremarkable. CT scan shows lytic bone disease as described. ASSESSMENT: Suspect second malignancy as opposed to recurrent metastatic endometrial cancer based on the duration of time that has passed. Because of her prior radiation, she could have a small bowel primary cancer causing both the bowel obstruction as well as lytic bone changes and I have discussed obtaining a biopsy for tissue diagnosis. The CAT scan also shows evidence of pulmonary emboli, which could well be related to an occult malignancy. PLAN: To await the results of her pending studies and full and further recommendations will be forthcoming. <ELECTRONICALLY SIGNED> By: Jael Moy MD 01/12/18 0818 2205 0054 Jael Moy MD /nt
--- NOTE | ~2018-01-04 | EKG ---
[place] [address] [address] [place] [address] ELECTROCARDIOGRAM REPORT Name: JAYLEN BORJA Room #: 412-P ADM IN M.R.#: [id number] Admission: 01/04/18 Attend Phys: Nael Varela MD Discharge: Date of : 34 Report #: [id number] THIS REPORT FOR: //name// [facility] ED Test Date: 2018-01-04 Test Time: 23:09:02 Pat Name: JAYLEN BORJA Department: Room: 412 Gender: F [employer]ing [employer] St[employer] Supervisor: JEREL : 1935 Requested By: Kamar Munoz Order Number: [id number] MD: Miguel A Vidal Measurements Intervals [place] Rate: 80 P: [place]: QRS: 21 QRSD: 92 T: -74 QT: 387 QTc: 447 Interpretive Statements Atrial fibrillation Low voltage, extremity leads Nonspecific T abnrm, anterolateral leads Compared to ECG 04/02/2017 15:24:32 No significant change was found Electronically Signed On 01-05-2018 9:11:08 CDT by Miguel A Vidal [email or web address] <ELECTRONICALLY SIGNED> By: Miguel A Vidal MD, [facility] 01/05/18 0911 2309 2309 Migule A Vidal MD, [facility] /EPI
[~2018-01-04 18:45] MED LIST changes: +CARDIZEM CD180 MG PO; +FLAGYL500 MG PO; +HYDROCODONE-AP1 EAC6 PO; +KEFLEX500 M1 PO; +METOPROLOL TART25 MG PO; +SYNTHROID75 MCG PO; +VANCOMYCIN HCL10 GM PO
[2018-01-04 20:48] LABS: URINE BILIRUBIN NEGATIVE (Negative); URINE BLOOD NEGATIVE (Negative); URINE CLARITY CLEAR; URINE COLOR YELLOW; URINE GLUCOSE-RANDOM* NEGATIVE (Negative); URINE KETONES NEGATIVE (Negative); URINE LEUKOCYTES NEGATIVE (Negative); URINE NITRITE NEGATIVE (Negative); URINE PROTEIN (DIPSTICK) NEGATIVE (Negative); URINE SPECIFIC GRAVITY 1.015 (1.005-1.035); URINE UROBILINOGEN 0.2 E.U./dl (0.2-1.0)
[2018-01-04 20:50] LABS: BASOPHILS 0.5 % (0.0-2.0); EOSINOPHILS 0.1 % (0.0-3.0); HEMATOCRIT 36.6 % (37.0-47.0); HEMOGLOBIN 12.1 gm/dL (12.0-15.0); LYMPHOCYTES 10.2 % (24.0-44.0); MCH 28.7 pg (26.0-34.0); MCHC 33.2 g/dL (28.0-37.0); MCV 86.5 fL (80.0-100.0); MONOCYTES 9.5 % (1.0-8.0); PLATELET COUNT 271 thou/uL (150-400); POLYS 79.7 % (36.0-66.0); RBC 4.23 mil/uL (4.20-5.00); RDW 17.7 % (10.5-14.5); WBC 5.1 thou/uL (4.0-11.0)
[2018-01-04 20:56] LABS: CALCIUM 9.8 mg/dL (8.5-10.1); CREATININE 0.7 mg/dL (0.6-1.0); POTASSIUM 3.9 mmol/L (3.5-5.1)
[2018-01-04 21:02] LABS: ALBUMIN 3.1 g/dL (3.4-5.0); TOTAL BILIRUBIN 0.5 mg/dL (<0.1-1.0)
[2018-01-04 23:27] VITALS: BP 121/60
[2018-01-05 00:45] VITALS: BP 129/52
[2018-01-05] MEDS ORDERED: CENTRUM SILVER1 EAC4 PO (00:54)
[2018-01-05] MEDS ORDERED: CRANBERRY TABL1 EACH PO (00:55)
[2018-01-05 04:00] VITALS: BP 107/40
[2018-01-05] MEDS ORDERED: LOPRESSOR25 PO (06:31)
[2018-01-05 08:37] VITALS: BP 112/61
[2018-01-05 17:34] VITALS: BP 143/72
[2018-01-05 21:17] VITALS: BP 140/57
[2018-01-06 04:25] VITALS: BP 144/60
[2018-01-06 08:07] VITALS: BP 152/66
[2018-01-06 19:53] VITALS: BP 151/76
[2018-01-07 04:00] VITALS: BP 152/69
[2018-01-07 05:41] LABS: CALCIUM 9.2 mg/dL (8.5-10.1); CREATININE 0.5 mg/dL (0.6-1.0)
[2018-01-07 05:57] LABS: POTASSIUM 2.8 mmol/L (3.5-5.1)
[2018-01-07 07:44] VITALS: BP 139/49
[2018-01-07 08:23] LABS: HEMATOCRIT 35.1 % (37.0-47.0); HEMOGLOBIN 11.5 gm/dL (12.0-15.0); MCH 28.7 pg (26.0-34.0); MCHC 32.9 g/dL (28.0-37.0); MCV 87.5 fL (80.0-100.0); PLATELET COUNT 243 thou/uL (150-400); RBC 4.01 mil/uL (4.20-5.00); RDW 17.2 % (10.5-14.5); WBC 6.7 thou/uL (4.0-11.0)
[2018-01-07 08:53] LABS: URINE BILIRUBIN NEGATIVE (Negative); URINE BLOOD 3+ (Negative); URINE CLARITY CLEAR; URINE COLOR YELLOW; URINE GLUCOSE-RANDOM* NEGATIVE (Negative); URINE KETONES 2+ (Negative); URINE LEUKOCYTES 3+ (Negative); URINE NITRITE POSITIVE (Negative); URINE PROTEIN (DIPSTICK) TRACE (Negative); URINE UROBILINOGEN 0.2 E.U./dl (0.2-1.0)
[2018-01-07 09:09] LABS: SQUAMOUS 0-3 Few /LPF (0-3); URINE RBC 3-10 Few /HPF (0-2)
[2018-01-07 09:10] LABS: BACTERIA >30 Many /HPF (None Seen); CASTS None Seen /LPF (None Seen); CRYSTALS None Seen /LPF (None Seen); URINE WBC >25 Many /HPF (0-5)
[2018-01-07 09:20] LABS: ANISOCYTOSIS 1+
[2018-01-07 17:05] VITALS: BP 124/65
[2018-01-07 17:30] VITALS: BP 154/67
[2018-01-07 19:48] VITALS: BP 126/47
[2018-01-08 07:25] LABS: HEMATOCRIT 32.9 % (37.0-47.0); HEMOGLOBIN 10.9 gm/dL (12.0-15.0); MCH 28.9 pg (26.0-34.0); MCV 87.4 fL (80.0-100.0); PLATELET COUNT 256 thou/uL (150-400); RBC 3.77 mil/uL (4.20-5.00); RDW 17.5 % (10.5-14.5); WBC 6.5 thou/uL (4.0-11.0)
[2018-01-08 07:40] VITALS: BP 150/80
[2018-01-08 07:42] LABS: CALCIUM 9.2 mg/dL (8.5-10.1); CREATININE 0.5 mg/dL (0.6-1.0); POTASSIUM 3.9 mmol/L (3.5-5.1)
[2018-01-08 07:56] LABS: ABSOLUTE NEUTROPHILS 4.6 thou/uL (1.4-8.2); METAMYELOCYTES 1 %
[2018-01-08 07:57] LABS: ANISOCYTOSIS 1+
[2018-01-08] MEDS ORDERED: CARDIZEM CD120 MG PO (08:00)
[2018-01-08] MEDS ORDERED: ELIQUIS5 MG PO (08:03)
[2018-01-08 09:33] VITALS: BP 150/80
[2018-01-08] MEDS ORDERED: KEFLEX500 M1 PO (11:57)
[2018-01-08] MEDS ORDERED: NYSTATIN100000 UNI SWISH&SPIT (11:57)
[2018-01-08 12:06] VITALS: BP 150/80
[2018-01-08 17:09] LABS: GLOBULIN TOTAL 3.1 g/dL (2.2-3.9); M-SPIKE Not Observed g/dL (Not Observed)
== END 2018-01-08 15:07 | disposition home health service (06) | DRG 388 ==
LOC: ER 18:45 → EROBS 22:33 → 4N 22:33 → SICU 01-07 16:17
PROVIDERS: Family Medicine; Internal Medicine Hematology & Oncology; Physician Assistant
DX: K56.600 Partial intestinal obstruction, unspecified as to cause (principal); S72.111A Displaced fracture of greater trochanter of right femur, initial encounter for closed fracture; I26.99 Other pulmonary embolism without acute cor pulmonale; N39.0 Urinary tract infection, site not specified; Z96.642 Presence of left artificial hip joint; I48.2 Chronic atrial fibrillation; G62.9 Polyneuropathy, unspecified; Z60.2 Problems related to living alone; B37.9 Candidiasis, unspecified; I11.0 Hypertensive heart disease with heart failure; K21.9 Gastro-esophageal reflux disease without esophagitis; M19.90 Unspecified osteoarthritis, unspecified site; I50.9 Heart failure, unspecified; E03.9 Hypothyroidism, unspecified; Z88.1 Allergy status to other antibiotic agents; Z87.891 Personal history of nicotine dependence; Z90.710 Acquired absence of both cervix and uterus; Z82.3 Family history of stroke; Z79.899 Other long term (current) drug therapy; Z79.82 Long term (current) use of aspirin; Z87.11 Personal history of peptic ulcer disease; Z98.42 Cataract extraction status, left eye; Z98.41 Cataract extraction status, right eye; Z86.73 Personal history of transient ischemic attack (TIA), and cerebral infarction without residual deficits; Z85.42 Personal history of malignant neoplasm of other parts of uterus; W18.39XA Other fall on same level, initial encounter; Y93.89 Activity, other specified; Y92.89 Other specified places as the place of occurrence of the external cause; Y99.8 Other external cause status
CPT/HCPCS: 10790; 15002

== ENCOUNTER 2018-05-06 14:59 | Inpatient (IN) | payer OTHER, MEDICARE ==
[~2018-05-06] VITALS: Ht 157.5 cm; Wt 56.7 kg
[~2018-05-06 14:59] MED LIST changes: +CENTRUM SILVER1 EAC4 PO; +CRANBERRY TABL1 EACH PO; +ELIQUIS5 MG PO; +NYSTATIN100000 UNI SWISH&SPIT
[2018-05-06 15:01] VITALS: BP 156/63
[2018-05-06 15:50] LABS: HEMATOCRIT 34.2 % (37.0-47.0); HEMOGLOBIN 11.5 gm/dL (12.0-15.0); MCH 29.3 pg (26.0-34.0); MCHC 33.5 g/dL (28.0-37.0); MCV 87.4 fL (80.0-100.0); PLATELET COUNT 322 thou/uL (150-400); RBC 3.91 mil/uL (4.20-5.00); RDW 15.6 % (10.5-14.5); WBC 4.1 thou/uL (4.0-11.0)
[2018-05-06 15:58] LABS: CALCIUM 9.5 mg/dL (8.5-10.1); CREATININE 0.7 mg/dL (0.6-1.0); POTASSIUM 3.2 mmol/L (3.5-5.1)
[2018-05-06 16:04] LABS: ALBUMIN 3.4 g/dL (3.4-5.0); DIRECT BILIRUBIN 0.1 mg/dL (<0.1-0.3); TOTAL BILIRUBIN 0.5 mg/dL (<0.1-1.0); TOTAL PROTEIN 7.4 g/dL (6.4-8.2)
[2018-05-06 16:16] LABS: ABSOLUTE NEUTROPHILS 2.1 thou/uL (1.4-8.2)
[2018-05-06 16:17] LABS: ANISOCYTOSIS 1+; SCHISTOCYTES OCCASIONAL
[2018-05-06 18:04] VITALS: BP 165/78
[2018-05-06 19:16] VITALS: BP 154/60
[2018-05-06 20:00] VITALS: BP 137/64
[2018-05-07 04:48] VITALS: BP 121/58
[2018-05-07 07:40] LABS: ALBUMIN 2.6 g/dL (3.4-5.0); CALCIUM 8.5 mg/dL (8.5-10.1); CREATININE 0.6 mg/dL (0.6-1.0); PHOSPHORUS 2.5 mg/dL (2.5-4.9)
[2018-05-07 07:44] LABS: POTASSIUM 2.9 mmol/L (3.5-5.1)
[2018-05-07 08:30] VITALS: BP 120/49
[2018-05-07 16:00] VITALS: BP 171/82
[2018-05-07 19:33] VITALS: BP 157/77
[2018-05-08 04:12] VITALS: BP 152/73
[2018-05-08 06:04] LABS: ALBUMIN 2.7 g/dL (3.4-5.0); CALCIUM 8.2 mg/dL (8.5-10.1); CREATININE 0.6 mg/dL (0.6-1.0); MAGNESIUM 1.7 mg/dL (1.8-2.4); PHOSPHORUS 1.8 mg/dL (2.5-4.9); POTASSIUM 3.2 mmol/L (3.5-5.1)
[2018-05-08] MEDS ORDERED: MIRALAX17 GM PO (10:10)
[2018-05-08 11:15] VITALS: BP 159/81
[2018-05-08 15:19] VITALS: BP 159/81
== END 2018-05-08 15:57 | disposition home or self-care (01) | DRG 391 ==
LOC: ER 14:59 → EROBS 17:58 → 4E 17:58
PROVIDERS: Emergency Medicine; Hospitalist
DX: K52.9 Noninfective gastroenteritis and colitis, unspecified (principal); E43 Unspecified severe protein-calorie malnutrition; K56.7 Ileus, unspecified; K56.600 Partial intestinal obstruction, unspecified as to cause; Z96.642 Presence of left artificial hip joint; I48.91 Unspecified atrial fibrillation; M62.84 Sarcopenia; G47.00 Insomnia, unspecified; R29.6 Repeated falls; E87.6 Hypokalemia; Z60.2 Problems related to living alone; K21.9 Gastro-esophageal reflux disease without esophagitis; I11.0 Hypertensive heart disease with heart failure; I50.9 Heart failure, unspecified; E03.9 Hypothyroidism, unspecified; Z87.891 Personal history of nicotine dependence; Z82.3 Family history of stroke; Z79.899 Other long term (current) drug therapy; Z85.40 Personal history of malignant neoplasm of unspecified female genital organ; Z98.42 Cataract extraction status, left eye; Z98.41 Cataract extraction status, right eye; Z86.73 Personal history of transient ischemic attack (TIA), and cerebral infarction without residual deficits; Z88.1 Allergy status to other antibiotic agents; Z90.710 Acquired absence of both cervix and uterus; Z79.82 Long term (current) use of aspirin; Z68.22 Body mass index [BMI] 22.0-22.9, adult
CPT/HCPCS: 10084

== ENCOUNTER 2018-07-30 03:19 | Inpatient (IN) | payer OTHER, MEDICARE ==
[~2018-07-30] VITALS: Ht 157.5 cm; Wt 56.2 kg
--- NOTE | ~2018-07-30 | HC ---
[facility] [place] [address] CONSULTATION Name: JAYLEN BORJA Room #: 431-P ADM IN M.R.#: [id number] Admission: 07/30/18 Attend Phys: Ghanshyam Reynolds MD Discharge: Date of : 34 Report #: [id number] THIS REPORT FOR: //name// CC: Ghanshyam Morley DATE OF SERVICE: 07/31/2018 REASON FOR CONSULTATION: Evaluate C. difficile colitis. HISTORY OF PRESENT ILLNESS: The patient is an 83-year-old with a history of C. difficile colitis over the last several years. She has a history of endometrial cancer status post hysterectomy and radiation. She has had issues with small-bowel obstructions and colitis since then. Presents on 07/30/2018 with partial small-bowel obstruction. Overall, the last 24 hours her pain has improved. Her vomiting has stopped. She has had persistent liquid stools. She has chronic diarrhea to start with. She controls this with Imodium and cholestyramine. She has had no blood in her stool. No fever, chills or sweats. Denies any dysuria. REVIEW OF SYSTEMS: GENERAL: Has been doing reasonably well with no change of weight or debility. EYES: Negative. EARS: Negative. PULMONARY: Negative. CARDIOVASCULAR: Negative. GASTROINTESTINAL: As above. GENITOURINARY: As above. JOINTS: Negative. NEUROLOGICAL: Negative. PSYCHIATRIC: Negative. ENDOCRINE: Negative. ALLERGY: Negative. HEMATOLOGIC: Negative. PAST MEDICAL HISTORY: Endometrial cancer, radiation therapy, atrial fibrillation, hypertension, congestive heart failure, TIAs, peptic ulcer disease, C. difficile colitis, peripheral neuropathy, gastroesophageal reflux, hypothyroidism, polymyalgia rheumatica, hysterectomy, left hip total arthroplasty. ALLERGIES: CIPROFLOXACIN. MEDICATIONS: As noted on NOV, now on ceftriaxone and oral vancomycin. FAMILY HISTORY: Noncontributory. [facility] [address] [place] [address] CONSULTATION Name: JAYLEN BORJA Room #: 431-P [facility] IN [facility].#: [id number] Admission: 07/30/18 Attend Phys: Ghanshyam Reynolds MD Discharge: Date of : 34 Report #: [id number] SOCIAL HISTORY: Past smoker, no significant alcohol intake. Lives alone. PHYSICAL EXAMINATION: GENERAL APPEARANCE: She was sitting up on the commode, alert, cooperative, pleasant, conversant, appears her stated age. EYES: Without conjunctivitis or scleral icterus. MOUTH: Without mucositis or lesion. NECK: Supple with no thyromegaly, mass or JVD. No palpable adenopathy. SKIN: Without rash. LUNGS: Clear, without adventitial sounds. HEART: Regular, without murmur, gallop or rub. ABDOMEN: Soft with mild tenderness in the left lower quadrant. No guarding or rebound. No masses. No hepatosplenomegaly. EXTERNAL GENITALIA: Not performed. RECTAL: Not performed. BACK: With midline spine. No CVA tenderness. EXTREMITIES: Without edema, cyanosis, clubbing. NEUROLOGIC: Cranial nerves intact. Strength in upper and lower extremities normal. Sensation to fine touch normal. PSYCHIATRIC: Normal mood. LABORATORY DATA: Abdominal x-ray initially showed small-bowel obstruction. Repeat x-ray, this has resolved. Hemoglobin 10.2, WBC 4.5 with 60% segs, 4% bands, platelet count 235,000. Sodium 139, potassium 4.4, bicarbonate 25, creatinine 0.6. Liver function tests normal. C. difficile by PCR was positive. Urinalysis had positive bacteria and blood with few rbc's, rare wbc's, moderate hyaline casts. IMPRESSION: Admission with partial small-bowel obstruction. This has improved. She has chronic diarrhea and has been Clostridium difficile positive repeatedly. Stools are positive again today. Unclear if we are dealing with Clostridium difficile positive stools or active infection. She has bacteriuria without gross pyuria, which is asymptomatic. 1. Polymyalgia rheumatica. 2. Atrial fibrillation, hypertension, congestive heart failure. 3. 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 RECOMMENDATIONS: We will discontinue ceftriaxone. Obtain stool for C. difficile toxin. Continue enteral vancomycin for now. Add back cholestyramine and once General Surgery agrees we will add back her Imodium. <ELECTRONICALLY SIGNED> By: Cam Cordova MD 08/01/18 1210 1223 1342 Cam Cordova MD /nt
[2018-07-30 03:19] VITALS: BP 143/92
[~2018-07-30 03:19] MED LIST changes: +MIRALAX17 GM PO
[2018-07-30 03:48] LABS: HEMATOCRIT 34.6 % (37.0-47.0); HEMOGLOBIN 11.7 gm/dL (12.0-15.0); MCH 29.7 pg (26.0-34.0); MCHC 33.8 g/dL (28.0-37.0); MCV 87.8 fL (80.0-100.0); PLATELET COUNT 275 thou/uL (150-400); RBC 3.94 mil/uL (4.20-5.00); RDW 17.9 % (10.5-14.5); WBC 2.3 thou/uL (4.0-11.0)
[2018-07-30 04:29] LABS: ABSOLUTE NEUTROPHILS 1.4 thou/uL (1.4-8.2); METAMYELOCYTES 1 %
[2018-07-30 04:30] LABS: ANISOCYTOSIS 1+; LARGE PLATELETS OCCASIONAL; PLATELET ESTIMATE NORMAL; SCHISTOCYTES FEW
[2018-07-30 04:31] LABS: POLYCHROMASIA SLIGHT
[2018-07-30 04:34] LABS: URINE BILIRUBIN NEGATIVE (Negative); URINE BLOOD 2+ (Negative); URINE CLARITY SL CLOUDY; URINE COLOR YELLOW; URINE GLUCOSE-RANDOM* NEGATIVE (Negative); URINE KETONES TRACE (Negative); URINE LEUKOCYTES-REFLEX NEGATIVE (Negative); URINE PROTEIN (DIPSTICK) TRACE (Negative); URINE SPECIFIC GRAVITY >= 1.030 (1.005-1.035); URINE UROBILINOGEN 0.2 E.U./dl (0.2-1.0)
[2018-07-30 04:36] LABS: URINE NITRITE-REFLEX POSITIVE (Negative)
[2018-07-30 04:42] LABS: BACTERIA-REFLEX >30 Many /HPF (None Seen); CRYSTALS None Seen /LPF (None Seen); HYALINE CASTS 4-10 Moderate /LPF (None Seen); MUCUS 4-6 Moderate strn/LPF (None Seen); SQUAMOUS 4-10 Moderate /LPF (0-3); URINE RBC 3-10 Few /HPF (0-2); URINE WBC-REFLEX 0-5 Rare /HPF (0-5)
[2018-07-30 06:29] LABS: CALCIUM 8.2 mg/dL (8.5-10.1); CREATININE 0.6 mg/dL (0.6-1.0); POTASSIUM 3.4 mmol/L (3.5-5.1)
[2018-07-30 06:35] LABS: ALBUMIN 2.5 g/dL (3.4-5.0); TOTAL BILIRUBIN 0.4 mg/dL (<0.1-1.0); TOTAL PROTEIN 5.6 g/dL (6.4-8.2)
[2018-07-30 06:46] VITALS: BP 142/48
[2018-07-30 08:28] VITALS: BP 135/52
[2018-07-30 09:50] VITALS: BP 136/58
[2018-07-30 17:02] VITALS: BP 149/66
[2018-07-30 19:48] VITALS: BP 126/46
[2018-07-31 05:52] LABS: HEMATOCRIT 28.6 % (37.0-47.0); HEMOGLOBIN 10.2 gm/dL (12.0-15.0); MCH 31.3 pg (26.0-34.0); MCHC 35.7 g/dL (28.0-37.0); MCV 87.8 fL (80.0-100.0); PLATELET COUNT 235 thou/uL (150-400); RBC 3.26 mil/uL (4.20-5.00); RDW 17.5 % (10.5-14.5); WBC 4.5 thou/uL (4.0-11.0)
[2018-07-31 06:10] LABS: CALCIUM 8.6 mg/dL (8.5-10.1); CREATININE 0.6 mg/dL (0.6-1.0); MAGNESIUM 1.9 mg/dL (1.8-2.4)
[2018-07-31 06:13] LABS: POTASSIUM 4.4 mmol/L (3.5-5.1)
[2018-07-31 06:34] VITALS: BP 111/51
[2018-07-31 07:48] VITALS: BP 140/45
[2018-07-31 09:22] LABS: ABSOLUTE NEUTROPHILS 2.9 thou/uL (1.4-8.2)
[2018-07-31 09:23] LABS: ANISOCYTOSIS 1+
[2018-07-31 15:56] VITALS: BP 123/39
[2018-07-31 21:00] VITALS: BP 150/63
[2018-08-01 05:00] VITALS: BP 149/72
[2018-08-01 08:00] VITALS: BP 156/71
[2018-08-01 16:30] VITALS: BP 144/47
[2018-08-01 19:52] VITALS: BP 127/51
[2018-08-02 06:07] VITALS: BP 177/61
[2018-08-02 07:54] VITALS: BP 148/75
[2018-08-02 16:40] VITALS: BP 127/49
[2018-08-02 20:17] VITALS: BP 151/51
[2018-08-03 04:27] VITALS: BP 152/85
[2018-08-03 07:57] VITALS: BP 127/49
[2018-08-03 08:11] VITALS: BP 150/62
[2018-08-03] MEDS ORDERED: ACIDOPHILUS1 EAC4 PO (15:18)
[2018-08-03] MEDS ORDERED: LOPERAMIDE 2 MG2 M1 PO (15:18)
[2018-08-03] MEDS ORDERED: METAMUCIL FIBE3.4 GM PO (15:19)
[2018-08-03] MEDS ORDERED: VANCOCIN 125 M125 M1 PO (15:20)
[2018-08-03 16:14] VITALS: BP 150/62
== END 2018-08-03 17:15 | disposition home or self-care (01) | DRG 871 ==
LOC: ER 03:19 → 4E 06:35 → EROBS 06:35 → 4E 08:39
PROVIDERS: Emergency Medicine; Nurse Practitioner
DX: A41.9 Sepsis, unspecified organism (principal); E43 Unspecified severe protein-calorie malnutrition; A04.71 Enterocolitis due to Clostridium difficile, recurrent; N39.0 Urinary tract infection, site not specified; K56.600 Partial intestinal obstruction, unspecified as to cause; Z66 Do not resuscitate; I11.0 Hypertensive heart disease with heart failure; I50.9 Heart failure, unspecified; I48.91 Unspecified atrial fibrillation; M62.84 Sarcopenia; R29.6 Repeated falls; K21.9 Gastro-esophageal reflux disease without esophagitis; Z96.642 Presence of left artificial hip joint; M35.3 Polymyalgia rheumatica; E03.9 Hypothyroidism, unspecified; G62.9 Polyneuropathy, unspecified; E87.6 Hypokalemia; Z87.81 Personal history of (healed) traumatic fracture; Z86.711 Personal history of pulmonary embolism; Z85.42 Personal history of malignant neoplasm of other parts of uterus; Z98.42 Cataract extraction status, left eye; Z98.41 Cataract extraction status, right eye; Z90.710 Acquired absence of both cervix and uterus; Z92.3 Personal history of irradiation; Z87.11 Personal history of peptic ulcer disease; Z87.891 Personal history of nicotine dependence; Z79.01 Long term (current) use of anticoagulants; Z79.82 Long term (current) use of aspirin; Z79.899 Other long term (current) drug therapy; Z88.1 Allergy status to other antibiotic agents; Z82.3 Family history of stroke
CPT/HCPCS: 10084

== ENCOUNTER 2018-12-24 12:08 | Inpatient (IN) | payer OTHER, MEDICARE ==
[~2018-12-24] VITALS: Ht 157.5 cm; Wt 56.6 kg
[~2018-12-24 12:08] MED LIST changes: +ACIDOPHILUS1 EAC4 PO; +METAMUCIL FIBE3.4 GM PO; +VANCOCIN 125 M125 M1 PO
[2018-12-24 12:34] VITALS: BP 126/51
--- NOTE | 2018-12-24 13:05 | NUR ---
IV TEAM PAGED AT THIS TIME
[2018-12-24 13:28] LABS: URINE BILIRUBIN NEGATIVE (Negative); URINE BLOOD NEGATIVE (Negative); URINE COLOR YELLOW; URINE GLUCOSE-RANDOM* NEGATIVE (Negative); URINE KETONES TRACE (Negative); URINE LEUKOCYTES TRACE (Negative); URINE NITRITE POSITIVE (Negative); URINE PROTEIN (DIPSTICK) TRACE (Negative); URINE SPECIFIC GRAVITY 1.025 (1.005-1.035); URINE UROBILINOGEN 0.2 E.U./dl (0.2-1.0)
[2018-12-24 13:29] LABS: URINE CLARITY HAZY
[2018-12-24 13:35] LABS: SQUAMOUS 4-10 Moderate /LPF (0-3)
[2018-12-24 13:36] LABS: HYALINE CASTS 0-3 Few /LPF (None Seen)
[2018-12-24 13:37] LABS: BACTERIA >30 Many /HPF (None Seen); CRYSTALS None Seen /LPF (None Seen); URINE RBC 0-2 Rare /HPF (0-2); URINE WBC 6-15 Few /HPF (0-5)
[2018-12-24 14:29] LABS: HEMATOCRIT 32.4 % (37.0-47.0); HEMOGLOBIN 10.7 gm/dL (12.0-15.0); MCH 28.8 pg (26.0-34.0); MCHC 32.9 g/dL (28.0-37.0); MCV 87.6 fL (80.0-100.0); PLATELET COUNT 305 thou/uL (150-400); RDW 17.6 % (10.5-14.5); WBC 3.3 thou/uL (4.0-11.0)
[2018-12-24 14:44] LABS: CALCIUM 9.6 mg/dL (8.5-10.1); CREATININE 0.8 mg/dL (0.6-1.0); POTASSIUM 4.1 mmol/L (3.5-5.1)
[2018-12-24 14:50] LABS: ALBUMIN 3.2 g/dL (3.4-5.0); DIRECT BILIRUBIN 0.1 mg/dL (<0.1-0.3); TOTAL BILIRUBIN 0.5 mg/dL (<0.1-1.0); TOTAL PROTEIN 7.2 g/dL (6.4-8.2)
[2018-12-24 16:18] LABS: ABSOLUTE NEUTROPHILS 1.9 thou/uL (1.4-8.2); ANISOCYTOSIS 2+; ATYPICAL LYMPHS 1 %
[2018-12-24 18:32] VITALS: BP 122/64
--- NOTE | 2018-12-24 18:39 | NUR ---
INITIAL ATTEMPT TO GIVE REPORT TO IP RN AT THIS TIME. WAS TOLD 4E WILL CALL BACK
[2018-12-24 19:42] VITALS: BP 116/45
[2018-12-24 20:05] VITALS: BP 142/48
[2018-12-25 03:05] VITALS: BP 109/56
--- NOTE | 2018-12-25 05:14 | NUR ---
PT ARRIVED ON UNIT APPROX 1999. PT ALERT AND ORIENTED. ASSESSMENT COMPLETED. ADMISSION COMPLETE. ORDERS IMPLEMENTED. VSS. CALL LIGHT WITHIN REACH. IV DRESSING C/D/I, NO SIGNS OF INFILTRATION. WILL CONTINUE POC UNTIL EOS.
[2018-12-25 05:31] LABS: CALCIUM 8.6 mg/dL (8.5-10.1); CREATININE 0.7 mg/dL (0.6-1.0); POTASSIUM 3.5 mmol/L (3.5-5.1)
[2018-12-25 05:35] LABS: ALBUMIN 2.7 g/dL (3.4-5.0); PHOSPHORUS 2.6 mg/dL (2.5-4.9)
[2018-12-25 08:28] VITALS: BP 147/54
[2018-12-25 16:00] VITALS: BP 119/52
--- NOTE | 2018-12-25 18:40 | EKG ---
[place] [address] [facility] [place] [address] ELECTROCARDIOGRAM REPORT Name: JAYLEN BORJA Room #: 418-P ADM IN M.R.#: [id number] ������������������ Admission: 12/24/18 ������������������ Attend Phys: Katherin Bryant Discharge: ������������������ Date of : 34 Report #: [id number] ����������������������������������������������������������������� [id number] THIS REPORT FOR: //name// [facility] ED Test Date: 2018-12-24 Test Time: 12:46:53 Pat Name: JAYLEN BORJA Department: Room: 418 Gender: F Milk Condenser: DAMARIS : 1935 Requested By: Bryce Polk Order Number: [id number] MD: Dann Hoyt Measurements Intervals [place] Rate: 90 P: [place]: QRS: 42 QRSD: 86 T: QT: 410 QTc: 502 Interpretive Statements Atrial fibrillation Low voltage limb leads Unspecific ST-T wave changes Baseline noise noted Compared to ECG 01/04/2018 23:09:02 no significant changes Electronically Signed On 12-25-2018 18:39:55 CDT by Dann Hoyt [email or web address] ��������������������������������������������� <ELECTRONICALLY SIGNED> ���������������������������������������� By: Dann Hoyt MD ��������������������������������������������� 12/25/18 1839 1246 1246 Dann Hoyt MD /EPI
[2018-12-25 19:13] VITALS: BP 127/50
--- NOTE | 2018-12-25 20:02 | NUR ---
PT ASSESSED AT START OF SHIFT. STOOLS LOOSE AT START AND NOW BECOMING FORMED. EATING AND DRINKING FINE. AMBULATES TO THE BATHROOM STEADILY. NO C/O PAIN.
[2018-12-26 04:00] VITALS: BP 138/56
--- NOTE | 2018-12-26 07:27 | NUR ---
SHIFT SUMMARY:ISOLATION FOR CDIFF. NO BM THRO THE NIGHT.DENIES PAIN. SBA TO THE BATHROOM-OTHERWISE STEADY.
[2018-12-26 07:34] VITALS: BP 149/65
--- NOTE | 2018-12-26 11:19 | NUR ---
PT POSSITIVE FOR CDIFF EVEN THOUGH STOOL STARTING TO FORM. WAS ON FLAGYL AND WILL CHANGE TO PO VANCO AT NOON. FEELING GOOD. NO ABD CRAMPING. EATING AND DRINKING WELL. AMBULATING STEADY HOLDING ONTO IV POLE-STANDBY ASSIST WHEN UP.
[2018-12-26 16:21] VITALS: BP 134/49
--- NOTE | 2018-12-26 18:30 | NUR ---
PT DOING BETTER. HAD 4 BM'S THIS SHIFT AND LAST ONE HAD SEVERAL PIECES OF FORMED STOOL. PLAN ON D/C TOMORROW PER DR. SÁNCHEZ.
[2018-12-26 20:30] VITALS: BP 183/52
--- NOTE | 2018-12-27 04:02 | NUR ---
NO BM NOTED SO FAR THIS SHIFT.PT C/O GEN ABD PAIN,MANAGED WITH PO MED.UP WITH SBA TO BR.PT CONT ON IV ABX AND IVF ORDERED.ISOLATION PRECAUTION MAINTAINED.FALL PRECAUTIONS IN PLACE.CALL LIGHT WITHIN REACH.
[2018-12-27 05:45] VITALS: BP 141/62
[2018-12-27 07:59] VITALS: BP 155/61
--- NOTE | 2018-12-27 08:08 | NUR ---
ASSUMED CARE OF PT AT 0700. ASSESSMENT COMPLETED, CHARTED. PT DENIES ABD AND NAUSEA. REPORTS ONE SOFT STOOL OVERNIGHT, MAINTAINING C.DIFF PRECAUTIONS. ROOM AIR. NO SOA OR CHEST PAIN. HTN, BP MEDS GIVEN ORDERED. SKIN INTACT, BRUISING BILATERAL UPPER ARMS FROM IV STICKS. PT HAS UNSTEADY GAIT, STANDBY ASSIST. FALL PRECAUTIONS IN PLACE. WILL CONTINUE TO MONITOR.
[2018-12-27] MEDS ORDERED: CEFUROXIME250 MG PO (09:55)
[2018-12-27] MEDS ORDERED: FIRVANQ50 MG/1 ML PO (09:55)
[2018-12-27 10:16] VITALS: BP 155/61
--- NOTE | 2018-12-27 13:59 | NUR ---
ASSESSMENT-PT LIVES IN A [facility] ALONE. SHE USES A CANE TO GET AROUND BUT DOES HAVE A WALKER IF NEEDED. PT HAS A TUB/SHOWER WITH A BATH BENCH AND HANDHELD SHOWER. PT HAS [employer]. PT HAS HAD [facility] IN THE PAST AND DOES NOT THINK SHE NEEDS THEM AGAIN. PT'S FRIEND NICOLE LAMAS WILL TRANSPORT HER HOME. PT HAS FAMILY IN [place], [place]. PT HAS SET UP A TWIN BED ON MAIN LEVEL OF HOME. FULL BATHROOM UP 14 STAIRS WITH A RAIL TO HOLD ONTO ON 1 SIDE. PT TO DC HOME TODAY WITH NO ADDITIONAL NEEDS.
== END 2018-12-27 14:05 | disposition home or self-care (01) | DRG 871 ==
LOC: ER 12:08 → 4E 18:00 → EROBS 18:00 → 4E 19:44
PROVIDERS: Nurse Practitioner; ADMIT Hospitalist
DX: A41.9 Sepsis, unspecified organism (principal); E43 Unspecified severe protein-calorie malnutrition; A04.72 Enterocolitis due to Clostridium difficile, not specified as recurrent; K21.9 Gastro-esophageal reflux disease without esophagitis; I50.9 Heart failure, unspecified; I11.0 Hypertensive heart disease with heart failure; N30.90 Cystitis, unspecified without hematuria; E86.0 Dehydration; N28.1 Cyst of kidney, acquired; M35.3 Polymyalgia rheumatica; I48.91 Unspecified atrial fibrillation; E03.9 Hypothyroidism, unspecified; Z87.891 Personal history of nicotine dependence; Z86.73 Personal history of transient ischemic attack (TIA), and cerebral infarction without residual deficits; Z87.11 Personal history of peptic ulcer disease; Z98.42 Cataract extraction status, left eye; Z98.41 Cataract extraction status, right eye; Z79.01 Long term (current) use of anticoagulants; Z79.899 Other long term (current) drug therapy; Z88.1 Allergy status to other antibiotic agents; Z82.3 Family history of stroke
CPT/HCPCS: 10084

== ENCOUNTER 2019-03-24 13:20 | Inpatient (IN) | payer OTHER, MEDICARE ==
[~2019-03-24] VITALS: Ht 157.5 cm; Wt 57.6 kg
--- NOTE | ~2019-03-24 | HC ---
[facility] [place] [address] CONSULTATION Name: JAYLEN BORJA Room #: 355-P [facility] IN M.R.#: [id number] Admission: 03/24/19 ������������������ Attend Phys: Pablito Rodríguez MD Discharge: 03/25/19 ������������������ Date of : 34 Report #: [id number] THIS REPORT FOR: //name// CC: Pablito Maganatera DATE OF SERVICE: 03/25/2019 INFECTIOUS DISEASE CONSULTATION REASON FOR CONSULTATION: I was asked to evaluate concerning C. difficile colitis and urinary tract infection. HISTORY OF PRESENT ILLNESS: The patient is an 83-year-old who presented to the Emergency Room with concerns of strokes. She had difficulty expressing herself the day of her admission. This lasted at most several hours, then cleared. No fever, chills or sweats. She has had no cough or sputum production. No chest pain, no nausea or vomiting. Her diarrhea is controlled now on vancomycin and daily Imodium. She is scheduled to have fecal transplant as soon as her niece is able to have screen procedure done. She also has had several days of dysuria. No gross hematuria. Noticed some odor to her urine. No lower abdominal or flank pain. No rashes. REVIEW OF SYSTEMS: A 10-point review of systems was negative other than what is described above. ALLERGIES: CIPROFLOXACIN. MEDICATIONS: As noted on her MAR including the vancomycin. She was started on ceftriaxone on this hospital stay. PAST MEDICAL HISTORY: Endometrial cancer with radiation therapy, atrial fibrillation, hypertension, congestive heart failure, TIA, peptic ulcer disease, C. difficile colitis, peripheral neuropathy, gastroesophageal reflux, hypothyroidism, polymyalgia rheumatica, hysterectomy, left hip total arthroplasty. FAMILY HISTORY: Noncontributory. SOCIAL HISTORY: Past smoker, no significant alcohol intake. Lives alone. PHYSICAL EXAMINATION: VITAL SIGNS: She was afebrile and hemodynamically stable. GENERAL: She was sitting up in her bed, in no acute distress. SKIN: Without rash or decubitus. No palpable adenopathy. HEENT: Eyes without conjunctivitis or scleral icterus. Mouth without mucositis [facility] [address] [place] [address] CONSULTATION Name: JAYLEN BORJA Vidal Room #: 355-P [facility] IN ..#: [id number] Admission: 03/24/19 ������������������ Attend Phys: Pablito Rodríguez MD Discharge: 03/25/19 ������������������ Date of : 34 Report #: [id number] or lesion. NECK: Supple, with no thyromegaly or mass. LUNGS: Clear with no adventitial sounds. HEART: Regular, without murmur, gallop or rub. ABDOMEN: Soft, nontender, no hepatosplenomegaly or mass appreciated. GENITAL: Not performed. RECTAL: Not performed. BACK: Midline, nontender with no CVA tenderness. EXTREMITIES: Without clubbing, cyanosis or edema. Cranial nerves were intact. Strength in her upper and lower extremities was normal with sensation to touch in upper and lower extremities normal. NEUROLOGIC: Mood was normal. LABORATORY STUDIES: Creatinine 0.7. Liver function tests normal. Urinalysis is positive for leukocytes and bacteria. Chest x-ray was clear. Hemoglobin 10, platelet count 222,000, white count was 5 with 54% segs, 1% bands, 32% lymphs. IMPRESSION: 1. Admission with change in speech, concerning for transient ischemic attack. So far, neurologic workup has been negative. 2. Polymyalgia rheumatica. 3. Atrial fibrillation 4. Hypertension, controlled. 5. Congestive heart failure. 6. 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 7. Ongoing treatment for C. difficile colitis, which is now stable, pending workup for fecal transplant. 8. Cystitis. PLAN: We will continue with Omnicef 300 mg p.o. b.i.d. for 5 days. The patient will stay on her enteral vancomycin. Have made arrangements for fecal transplant once her donor can be further evaluated. ��������������������������������������������� ���������������������������������������� By: ��������������������������������������������� 1457 Cam Cordova MD /nt
--- NOTE | ~2019-03-24 | HC ---
[facility] [place] [address] CONSULTATION Name: JAYLEN BORJA Room #: 355-P ADM IN M.R.#: [id number] Admission: 03/24/19 ������������������ Attend Phys: Pablito Rodríguez MD Discharge: ������������������ Date of : 34 Report #: [id number] THIS REPORT FOR: //name// CC: Pablito Morley HISTORY OF PRESENT ILLNESS: An 83-year-old female patient who was discussed with hospitalist, nurse practitioner, who did the H and P. The patient's history is not very clear. She said in the baseline she has word finding difficulty and she has difficulty naming the people. Today, she was on the phone and she was noticed to have more difficulty and she was brought here. It came spontaneously without any trauma. She has not had any history of stroke or TIAs in the past. She is back to her baseline. REVIEW OF SYSTEMS: Indicate that she did have difficulty with finding names in the past. She denies any prior history of stroke. She indicates that since 2011, she has C. diff and she takes vancomycin for that. She indicates she has a history of atrial fibrillation and she takes Eliquis for that. She does have a history of GI bleed, but presently, she is not complaining of any new eye, ENT, cardiac, respiratory, GI, , musculoskeletal, constitutional, dermatological, hematological, psychiatric, throat or allergic symptoms associated with present symptomatology. PAST MEDICAL HISTORY: Negative for any stroke. FAMILY HISTORY: Negative for early age stroke. SOCIAL HISTORY: She does not smoke. PHYSICAL EXAMINATION: GENERAL: The patient is alert, responsive, able to follow simple and complex commands. NEUROLOGIC: Her speech, concentration, fund of knowledge and memory are at her baseline. Cranial nerve examination 2-12 looks unremarkable. I could not look at the patient's fundus. Strength, sensation, reflexes and tone are symmetrical. No cerebellar sign is present. HEENT: The patient is a moderately built individual who does not have any dysmorphic features of eyes, ears and face. NECK: She has no thyroid mass. Her pulses are palpable. CARDIAC: Examination to me looks mostly unremarkable, but she has a history of atrial fibrillation. LUNGS: No respiratory difficulty or rhonchi was noticed on either side. VITAL SIGNS: Her blood pressure was 179/75, respirations 16 and pulse is 79. LABORATORY DATA: GFR is 68. She had a CT scan of the head, which showed diffuse changes, but no acute changes. [facility] [address] [place] [address] CONSULTATION Name: JAYLEN BORJA Room #: 355-P [facility]#: [id number] Admission: 03/24/19 ������������������ Attend Phys: Pablito Rodríguez MD Discharge: ������������������ Date of : 34 Report #: [id number] IMPRESSION AND PLAN: Difficult to be certain in this patient. She may have had an episode of transient ischemic attack that is difficult to confirm. This is because she has some baseline difficulty. We will work her up for TIA. If she is on anticoagulation, there is limited thing you can do until you find some gross pathology. I reviewed and it looks like MRI and the carotid Doppler are already ordered. We will see what it shows and we will go ahead and do an echocardiogram. We will await this workup and see what this workup shows and decide about further management. Her blood pressure is trace high, but she feels back to her baseline according to her. She is agreeable for admission. ��������������������������������������������� ���������������������������������������� By: ��������������������������������������������� 1628 [id number] Franco Gordon MD /nt
[~2019-03-24 13:20] MED LIST changes: +CEFUROXIME250 MG PO; +FIRVANQ50 MG/1 ML PO
[2019-03-24 14:57] LABS: ABSOLUTE NEUTROPHILS 4.7 thou/uL (1.4-8.2); HEMATOCRIT 36.9 % (37.0-47.0); HEMOGLOBIN 12.3 gm/dL (12.0-15.0); LYMPHOCYTES 23.7 % (24.0-44.0); MCH 30.1 pg (26.0-34.0); MCHC 33.2 g/dL (28.0-37.0); MCV 90.8 fL (80.0-100.0); MONOCYTES 9.9 % (1.0-8.0); PLATELET COUNT 334 thou/uL (150-400); POLYS 63.4 % (36.0-66.0); RBC 4.07 mil/uL (4.20-5.00); RDW 15.4 % (10.5-14.5); WBC 7.4 thou/uL (4.0-11.0)
[2019-03-24 15:00] LABS: URINE BILIRUBIN NEGATIVE (Negative); URINE BLOOD 1+ (Negative); URINE CLARITY CLEAR; URINE COLOR YELLOW; URINE GLUCOSE-RANDOM* NEGATIVE (Negative); URINE KETONES NEGATIVE (Negative); URINE PROTEIN (DIPSTICK) NEGATIVE (Negative); URINE SPECIFIC GRAVITY <= 1.005 (1.005-1.035); URINE UROBILINOGEN 0.2 E.U./dl (0.2-1.0)
[2019-03-24 15:01] LABS: ANION GAP 12 mmol/L (7-16); BUN 26 mg/dL (7-18); CALCIUM 9.2 mg/dL (8.5-10.1); CHLORIDE 103 mmol/L (98-107); CO2 25 mmol/L (21-32); CREATININE 0.8 mg/dL (0.6-1.0); GLUCOSE 109 mg/dL (74-106); POTASSIUM 3.8 mmol/L (3.5-5.1); SODIUM 140 mmol/L (136-145)
[2019-03-24 15:04] LABS: URINE LEUKOCYTES-REFLEX 3+ (Negative); URINE NITRITE-REFLEX POSITIVE (Negative)
[2019-03-24 15:09] LABS: AMP/METHAMP Negative (Negative); BARBITURATES Negative (Negative); BENZODIAZEPINES Negative (Negative); COCAINE Negative (Negative); METHADONE Negative (Negative); OPIATES Negative (Negative); PCP Negative (Negative)
[2019-03-24 15:11] LABS: ALBUMIN 3.6 g/dL (3.4-5.0); APTT 24.7 Seconds (24.5-32.8); MAGNESIUM 1.9 mg/dL (1.8-2.4); PROTIME 9.8 Seconds (9.3-11.4); SGOT 22 U/L (15-37); SGPT 30 U/L (30-65); TOTAL BILIRUBIN 0.3 mg/dL (<0.1-1.0); TOTAL PROTEIN 7.5 g/dL (6.4-8.2); TROPONIN-I <0.06 ng/mL (<0.06)
[2019-03-24 15:15] LABS: CASTS None Seen /LPF (None Seen); CRYSTALS None Seen /LPF (None Seen); SQUAMOUS 0-3 Few /LPF (0-3); URINE RBC 0-2 Rare /HPF (0-2); URINE WBC-REFLEX >25 Many /HPF (0-5); WBC CLUMPS Moderate (None Seen)
[2019-03-24 16:15] VITALS: BP 179/75
--- NOTE | 2019-03-24 16:57 | NUR ---
US AT BEDSIDE. IV TEAM IN DEPARTMENT STATING THAT THEY WILL PLACE PICC
--- NOTE | 2019-03-24 18:22 | NUR ---
PATIENT ADMITTED TO ROOM AT THIS TIME. SHE IS ALERT ORIENTED X4. PLEASANT. HX OF CDIFF AND CURRENTLY ON TREAMENT. WILL BE ON ISOLATION. SEE DR HARRIS OUTATIENT. CONSULT INITIATED.
[2019-03-24 19:33] VITALS: BP 134/59
[2019-03-24 23:23] VITALS: BP 117/53
--- NOTE | 2019-03-25 03:47 | NUR ---
Admission history and assessments completed.Care plan initiated. High fall risks, fall precautions in place. Patient calls out appropriately for needs. IVfluids infusing. Stress incontince, urine foul smelling. Vital signs stable. Rhythm unchanges chronic Afib rate controlled.
--- NOTE | 2019-03-25 03:49 | NUR ---
For MRI/MRA today. NIH 0. Neuro unchanged.
[2019-03-25 04:07] LABS: GLYCOHEMOGLOBIN (HGB A1C) 5.2 % (4.8-5.6)
[2019-03-25 04:11] VITALS: BP 112/50
[2019-03-25 05:17] LABS: HEMATOCRIT 30.3 % (37.0-47.0); MCH 30.4 pg (26.0-34.0); MCHC 33.5 g/dL (28.0-37.0); MCV 90.7 fL (80.0-100.0); RBC 3.34 mil/uL (4.20-5.00); RDW 15.2 % (10.5-14.5); WBC 5.1 thou/uL (4.0-11.0)
[2019-03-25 05:28] LABS: HEMOGLOBIN 10.2 gm/dL (12.0-15.0); PLATELET COUNT 232 thou/uL (150-400)
[2019-03-25 05:30] LABS: CALCIUM 8.5 mg/dL (8.5-10.1); CREATININE 0.7 mg/dL (0.6-1.0); MAGNESIUM 1.8 mg/dL (1.8-2.4); POTASSIUM 3.3 mmol/L (3.5-5.1)
[2019-03-25 05:38] LABS: CHOLESTEROL 158 mg/dL (<200); HDL CHOLESTEROL 65 mg/dL (>40); LDL CHOLESTEROL 83 mg/dL (<100); SERUM ASSESSMENT Clear; TC:HDL 2.4 Ratio (Not establshd); TRIGLYCERIDE 53 mg/dL (<150); VLDL 11 mg/dL (<40)
[2019-03-25 06:35] LABS: ABSOLUTE NEUTROPHILS 2.8 thou/uL (1.4-8.2)
[2019-03-25 06:36] LABS: ANISOCYTOSIS 1+; PLATELET ESTIMATE NORMAL; POIKILOCYTOSIS 1+
--- NOTE | 2019-03-25 07:27 | EKG ---
[place] [address] [facility] [place] [address] ELECTROCARDIOGRAM REPORT Name: JAYLEN BORJA Room #: 355-P ADM IN M.R.#: [id number] ������������������ Admission: 03/24/19 ������������������ Attend Phys: Pablito Rodríguez MD Discharge: ������������������ Date of : 34 Report #: [id number] ����������������������������������������������������������������� [id number] THIS REPORT FOR: //name// [facility] ED Test Date: 2019-03-24 Test Time: 16:02:14 Pat Name: JAYLEN BORJA Department: Room: [facility] Gender: F Fowl Blood Tester: : 1935 Requested By: Cam Jewell Order Number: [id number] MD: Miguel A Vidal Measurements Intervals [place] Rate: 85 P: [place]: QRS: 61 QRSD: 105 T: 17 QT: 426 QTc: 507 Interpretive Statements Atrial fibrillation Prolonged QT interval Compared to ECG 12/24/2018 12:46:53 ST segment abnormality is less pronounced Electronically Signed On 03-25-2019 7:26:47 CDT by Miguel A Vidal [email or web address] ��������������������������������������������� <ELECTRONICALLY SIGNED> ���������������������������������������� By: Miguel A Vidal MD, [facility] ��������������������������������������������� 03/25/19 0726 1602 160 Miguel A Vidal MD, [facility] /EPI
[2019-03-25 07:58] VITALS: BP 145/60
--- NOTE | 2019-03-25 09:38 | 2DMMODE ---
[facility] [address] [place] [address] 2 D/M-MODE ECHOCARDIOGRAM Name: JAYLEN BORJA Room #: 355-P [facility] IN ..#: [id number] ������������� Admission: 03/24/19 ������������� Attend Phys: Pablito Rodríguez, Discharge: ��� ������������� ��� Date of : 33 Date of Service: 03/25/19 0938 �� Report #: [id number] �������� ��������������������������������������������[id number] THIS REPORT FOR: //name// APPROVED REPORT Study performed: 03/25/2019 07:26:02 EXAM: Comprehensive 2D, Doppler, and color-flow Echocardiogram Patient Location: Bedside Room #: [facility] Status: routine BSA: 1.58 HR: 76 bpm BP: 112/50 mmHg Rhythm: Atrial Fibrillation Other Information Study Quality: Good Indications TIA. Hx: Afib, CHF, HTN. Echo Enhancing Agent Indication: Rule out Shunt Agent(s) / Amount(s) Used: Agitated Saline 6 cc 2D Dimensions RVDd: 38.38 mm IVSd: 9.15 (7-11mm) LVOT Diam: 18.74 (18-24mm) LVDd: 42.86 mm PWd: 9.72 (7-11mm) LVDs: 26.70 (25-40mm) Aortic Root: 28.22 mm Volumes Left Atrial Volume (Systole) Single Plane 4CH: 54.92 mL Single Plane 2CH: 49.24 mL LA ESV Index: 35.00 mL/m2 Aortic Valve AoV Peak Nikolay.: 1.67 m/s AO Peak Gr.: 12.48 mmHg LVOT Max P.00 mmHg LVOT Max V: 1.50 m/s JENNYFER Vmax: 2.47 cm2 [facility] [address] [place] [address] 2 D/M-MODE ECHOCARDIOGRAM Name: JAYLEN BORJA Room #: 355-[facility] IN [facility].#: [id number] ������������� Admission: 03/24/19 ������������� Attend Phys: Pablito Rodríguez, Discharge: ��� ������������� ��� Date of : 33 Date of Service: 03/25/19 0938 �� Report #: [id number] �������� ��������������������������������������������[id number] Mitral Valve MV Decel. Time: 138.26 ms MV E Max Nikolay.: 1.50 m/s Pulmonary Valve PV Peak Nikolay.: 0.78 m/s PV Peak Gr.: 2.44 mmHg Tricuspid Valve TR Peak Nikolay.: 3.59 m/s RAP Estimate: 10.00 mmHg TR Peak Gr.: 51.65 mmHg PA Pressure: 62.00 mmHg Left Ventricle The left ventricle is normal size. There is normal LV segmental wall motion. Mild basal septal hypertrophy is present. Left ventricular systolic function is normal. LVEF is 60-65%. This study is not technically sufficient to allow evaluation of the LV diastolic function due to atrial fibrillation. Right Ventricle The right ventricle is normal size. The right ventricular systolic function is normal. Atria Left atrium is mildly dilated. No shunting noted with contrast bubble injection. Right atrium is mildly dilated. Aortic Valve Aortic valve leaflets are mildly sclerotic No aortic regurgitation is present. There is no aortic valvular stenosis. Mitral Valve Mild mitral annular calcification. Moderate to moderately severe mitral regurgitation. Tricuspid Valve The tricuspid valve is normal in structure. Moderate tricuspid regurgitation. Estimated PAP is 55mmHg. Pulmonic Valve The pulmonary valve is normal in structure. Trace pulmonic regurgitation. Great Vessels The aortic root is normal in size. Ascending aorta is not well visualized. IVC is normal in size and collapses <50% with [facility] [address] [place] [address] 2 D/M-MODE ECHOCARDIOGRAM Name: JAYLEN BORJA Room #: 355-P [facility] IN .R.#: [id number] ������������� Admission: 03/24/19 ������������� Attend Phys: Pablito Rodríguez, Discharge: ��� ������������� ��� Date of : 33 Date of Service: 03/25/19 0938 �� Report #: [id number] �������� ��������������������������������������������[id number] inspiration. Pericardium There is no pericardial effusion. <Conclusion> Left ventricular systolic function is normal. There is normal LV segmental wall motion. LVEF is 60-65%. Both atria are mildly dilated. No shunting noted with contrast bubble injection. Aortic valve leaflets are mildly sclerotic. No aortic regurgitation or stenosis Mild mitral annular calcification. Moderate to moderately severe mitral regurgitation. Moderate tricuspid regurgitation. Estimated pulmonary artery pressure of 55mmHg. There is no pericardial effusion. ��������������������������������������������� <ELECTRONICALLY SIGNED> ���������������������������������������� By: Miguel A Vidal MD, FACC ��������������������������������������������� 03/25/19937 7 7 Miguel A Vidal MD, FAC /INF
[2019-03-25 12:03] VITALS: BP 112/71
--- NOTE | 2019-03-25 12:25 | NUR ---
ASSESSMENT: CM REVIEWED CHART AND MET WITH PATIENT AT THE BEDSIDE. PT WAS ADMITTED WITH POSSIBLE TIA/UTI. PT LIVES IN A TOWNHOUSE ALONE. PT REPORTS ONE STEP TO ENTER. PT REPORTS SHE HAS A TWIN BED ON THE MAIN LEVEL BUT HER FULL BATH IS UPSTAIRS WITH ABOUT 12 STEPS WITH HANDRAILS. PT REPORTS THAT SHE USES A CANE FOR AMBULATION. PT STATES SHE HAS A BATH BENCH IN HER SHOWER AND AN EXTENDED SHOWER HEAD. PT REPORTS SHE HAS HAD [facility] IN THE PAST. CM DISCUSSED ROLE. CM DISCUSSED THAT PHYSICAL THERAPY IS RECOMMENDING HH. PT STATING SHE HAD HH BEFORE AND SHE FEELS SHE DOES NOT NEED IT AND DOES NOT WANT IT. SHE STATES SHE KNOWS HOW TO DO ALL THE EXERCISES. PT REPORTS THAT SHE WILL HAVE A RIDE HOME AT DISCHARGE. 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
[2019-03-25 15:00] VITALS: BP 118/36
[2019-03-25] MEDS ORDERED: CEFDINIR300 MG PO (16:40)
[2019-03-25 16:50] VITALS: BP 112/71
--- NOTE | 2019-03-25 17:12 | NUR ---
PATIENT WILL BE DISCHARGED AT THIS TIME TO HOME. SHE HAS BEEN CLEARED BY NEURO. NO STROKE NOTED. SHE IS ALERT ORIENTED X4. SHE IS QUITE ACTIVE IN HER CARE. NO COMPLAIN OF PAIN AT THIS TIME. RESPIRATIONS NON LABORED. WILL FAMILY WILL TAKE HER HOME. WILL CONT WITH PLAN OF CARE.
== END 2019-03-25 17:32 | disposition home or self-care (01) | DRG 689 ==
LOC: ER 13:20 → EROBS 15:51 → 3W 15:51
PROVIDERS: Emergency Medicine; Nurse Practitioner; ADMIT Internal Medicine
DX: N30.90 Cystitis, unspecified without hematuria (principal); I26.99 Other pulmonary embolism without acute cor pulmonale; G45.9 Transient cerebral ischemic attack, unspecified; A04.72 Enterocolitis due to Clostridium difficile, not specified as recurrent; R47.01 Aphasia; I48.91 Unspecified atrial fibrillation; K21.9 Gastro-esophageal reflux disease without esophagitis; E03.9 Hypothyroidism, unspecified; G62.9 Polyneuropathy, unspecified; E86.0 Dehydration; I50.9 Heart failure, unspecified; Z66 Do not resuscitate; Z96.642 Presence of left artificial hip joint; I11.0 Hypertensive heart disease with heart failure; M35.3 Polymyalgia rheumatica; I34.0 Nonrheumatic mitral (valve) insufficiency; Z98.41 Cataract extraction status, right eye; Z98.42 Cataract extraction status, left eye; Z88.1 Allergy status to other antibiotic agents; Z87.891 Personal history of nicotine dependence; Z87.11 Personal history of peptic ulcer disease; Z90.710 Acquired absence of both cervix and uterus
CPT/HCPCS: 10879

== ENCOUNTER → 2019-05-12 | Outpatient (CLI) | payer OTHER, MEDICARE ==
[~2019-05-12] MED LIST changes: +CEFDINIR300 MG PO
== END | disposition home or self-care (01) ==
LOC: RAD 09:41
DX: A04.72 Enterocolitis due to Clostridium difficile, not specified as recurrent (principal)

== ENCOUNTER 2019-11-25 20:21 | Inpatient (IN) | payer OTHER, MEDICARE ==
[~2019-11-25] VITALS: Ht 157.5 cm; Wt 60.3 kg
--- NOTE | ~2019-11-25 | HC ---
[facility] [place] [address] CONSULTATION Name: JAYLEN BORJA Room #: 361-P [facility] IN M.R.#: [id number] Admission: 11/25/19 Attend Phys: Marta Kiran MD Discharge: 11/28/19 Date of : 34 Report #: [id number] THIS REPORT FOR: cc: Dougie Morley MD, Rene P. MD Smithson, David G. MD ~ CC: Marta Morley DATE OF SERVICE: 11/28/2019 HISTORY OF PRESENT ILLNESS: The patient is an 84-year-old white female who lives in a townhouse who was apparently going to get something in her garage when she had a mechanical fall. She had complaints of right wrist and right hip pain. The right wrist did show evidence of a distal radius fracture and she underwent closed reduction with a sugar tong splint placed by Dr. Gilman. This was treated nonoperatively. Her right hip and right leg did not show any evidence of fracture. She was felt to have contusion. She is limited to nonweightbearing to the right hand and can weightbear through the forearm. We are seeing her in rehabilitation medicine consultation. PAST MEDICAL HISTORY: Significant for premorbid severe right hip degenerative arthritis, history of endometrial CA, polymyalgia rheumatica, hypertension, AFib, GERD, duodenal and gastric ulcers, hypothyroidism, urinary retention, chronic neuropathy, chronic diarrhea, past history of C. diff, and pneumonia. PAST SURGICAL HISTORY: Includes total hysterectomy. MEDICATIONS: Please see the full medication listing. ALLERGIES: CIPROFLOXACIN. SOCIAL HISTORY: Premorbid use of a cane. Lives alone, two level townhouse multilevel with a lot of steps. REVIEW OF SYSTEMS: No current complaints of chest pain, shortness of breath or abdominal discomfort. PHYSICAL EXAMINATION: GENERAL: An 84-year-old white female, in no obvious distress. VITAL SIGNS: Last recorded temperature 97.8, pulse 78, respirations 20, blood pressure 114/46. The patient is alert. HEENT: Appeared to be benign. NEUROLOGIC: Cranial nerves grossly intact. Facies are symmetric. EXTREMITIES: Functional range of motion of the left upper and left lower extremity without obvious focal weakness. Her right wrist has the splint in [address] [address] CONSULTATION Name: JAYLEN BORJA Room #: 361-P [facility] IN .R.#: [id number] Admission: 11/25/19 Attend Phys: Marta Kiran MD Discharge: 11/28/19 Date of : 34 Report #: [id number] Right lower extremity, no focal calf swelling, can move that right lower extremity, probably a grade 4-/5. She is sit to stand, mod assist, utilizing a platform walker on the right. She took 3-4 steps mod assist. ASSESSMENT: An 84-year-old white female with the following problem list: 1. Right distal radius fracture with closed reduction. Nonweightbearing to the right hand. 2. Urinary tract infection, was given IV Rocephin following urine culture. 3. Atrial fibrillation. 4. History of severe right hip degenerative arthritis. 5. Past tobacco abuse. 6. Polymyalgia rheumatica. 7. Premorbid neuropathy. 8. Past history of Clostridium difficile. 9. See above past medical history. PLAN: The patient does not meet criteria for an acute 5 [place] inpatient rehabilitation stay. Would agree with intermediate facility options as are being assessed. Thank you for asking us to assist in this patient's care. By: 1114 1700 Rodriguez Lagunas MD /PMT
--- NOTE | ~2019-11-25 | HC ---
[facility] [place] [address] CONSULTATION Name: JAYLEN BORJA Room #: 361-P ADM IN .R.#: [id number] Admission: 11/25/19 Attend Phys: Marta Kiran MD Discharge: Date of : 33 Report #: [id number] THIS REPORT FOR: cc: Dougie Morley MD, Rene P. MD Deardorff, Valerie A. MD ~ CC: Marta Morley DATE OF SERVICE: 11/26/2019 REASON FOR CONSULTATION: Right distal radius fracture. HISTORY OF PRESENT ILLNESS: The patient is an 84-year-old right-hand dominant female who fell in her garage onto her right side. Complained of right hip and wrist pain with right wrist deformity, and 30 minutes after falling, she remembered she had her alert called and EMS brought her to the Emergency Department. She was evaluated, right hip fracture was ruled out. She was diagnosed with a displaced distal radius fracture and closed reduction was performed and she was placed into a sugar tong splint. She denies loss of consciousness. Denies other injury. REVIEW OF SYSTEMS: MUSCULOSKELETAL: See HPI. NEUROLOGIC: Denies new numbness or tingling. 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 MEDICATIONS: Home medications include levothyroxine, metoprolol, diltiazem, loperamide. SOCIAL HISTORY: She was a past smoker, quit smoking in 2006. Denies drinking alcohol. Right hand dominant, uses a cane when she is out with her right upper extremity and uses a wheeled walker at home. She lives by herself in a 2-level townhouse. PAST SURGICAL HISTORY: History of endometrial cancer, total abdominal hysterectomy. She has a history of cervical spine surgery in 2017, lumbar surgery in 1962. ALLERGIES: CIPROFLOXACIN. LABORATORY DATA: Done on 11/26/2019 show white blood cell count 10.4, hemoglobin 10.1, hematocrit 30.3, platelet count 280. INR is 1. Chemistry is [address] [address] CONSULTATION Name: HUONGJAYLEN Vidal Room #: 361-P [facility] IN [facility].#: [id number] Admission: 11/25/19 Attend Phys: Marta Kiran MD Discharge: Date of : 34 Report #: [id number] grossly normal. PHYSICAL EXAMINATION: GENERAL: She is alert and oriented, interacts appropriately. She is a well-developed, well-nourished female in no acute distress. VITAL SIGNS: Most recent vital signs show temperature of 37.2, heart rate 101, respiratory rate 18, blood pressure 124/39, pulse oximetry is 93% on room air. EXTREMITIES: Her right upper extremity was placed into a sugar tong splint. I moved the Parish wrap as proximal as possible to encourage digital motion. She had diffuse appropriate edema to the digits. She is neurovascularly intact with gross sensory and motor intact. She is able to abduct and adduct, flex and extend her fingers. Her EPL was intact. There is no tenderness in the digits. No tenderness in the elbow. No tenderness to the right shoulder or humerus. Left upper extremity is grossly neurovascularly intact. Skin is clean, dry and intact. She moved her left upper extremity without pain. Bilateral lower extremities are grossly neurovascularly intact. Skin is clean, dry and intact. Gross motor and sensory intact. She has no tenderness to palpation throughout the entire bilateral lower extremities. No pain with range of motion of bilateral hips, knees, ankles or feet. RADIOGRAPHS: AP, lateral and oblique of the right wrist pre-reduction shows an intraarticular distal radius fracture with mild amount of dorsal and radial displacement. Post-reduction radiographs include a suboptimal AP and a good lateral view show a distal radius and ulnar fractures at the metaphysis with slight radial angulation and translation and essentially neutral dorsal volar tilt. Also noted is significant STT arthrosis. AP pelvis and AP and lateral of the right hip show significant arthrosis. No definite fracture and a prior left total hip arthroplasty. Reports were also reviewed, the images were interpreted by myself as well. IMPRESSION AND PLAN: 1. History of right hip pain after a fall. This is improved with no definite fracture. She may be weightbearing as tolerated. 2. Right distal radius and ulna fractures in an 84-year-old right-hand dominant female. I will have a better PA view taken to further assess the radial angulation. With respect to the other parameters, her radius is not shortened. She has [id number] dorsal tilt and most likely she has the potential to do very well without surgical treatment. We discussed this. She reports a history of a left distal radius fracture a few years ago that was treated nonoperatively. Examination of this showed slightly prominent ulna. She reports doing well from this noting a bump volarly at her thumb CMC joint. 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 I will see her in the morning and review the x-rays. She does not need to be n.p.o. I encouraged digital motion as well as retrograde massage. By: [id number] Sidra Gilman MD /nt
[2019-11-25 20:22] VITALS: BP 146/49
[2019-11-25 21:06] LABS: HEMATOCRIT 39.6 % (37.0-47.0); HEMOGLOBIN 12.7 gm/dL (12.0-15.0); MCH 30.1 pg (26.0-34.0); MCHC 32.1 g/dL (28.0-37.0); MCV 93.9 fL (80.0-100.0); RBC 4.22 mil/uL (4.20-5.00); RDW 15.3 % (10.5-14.5); WBC 18.7 thou/uL (4.0-11.0)
[2019-11-25 21:07] LABS: URINE BILIRUBIN NEGATIVE (Negative); URINE BLOOD NEGATIVE (Negative); URINE CLARITY SL CLOUDY; URINE COLOR YELLOW; URINE GLUCOSE-RANDOM* NEGATIVE (Negative); URINE KETONES 1+ (Negative); URINE PROTEIN (DIPSTICK) TRACE (Negative); URINE UROBILINOGEN 0.2 E.U./dl (0.2-1.0)
[2019-11-25 21:09] LABS: URINE LEUKOCYTES-REFLEX 1+ (Negative); URINE NITRITE-REFLEX POSITIVE (Negative)
[2019-11-25 21:11] LABS: SQUAMOUS 0-3 Few /LPF (0-3)
[2019-11-25 21:12] LABS: BACTERIA-REFLEX >30 Many /HPF (None Seen); CASTS None Seen /LPF (None Seen); CRYSTALS None Seen /LPF (None Seen); URINE WBC-REFLEX >25 Many /HPF (0-5)
[2019-11-25 21:13] LABS: CALCIUM 9.8 mg/dL (8.5-10.1); CREATININE 0.9 mg/dL (0.6-1.0); POTASSIUM 3.7 mmol/L (3.5-5.1); URINE RBC None Seen /HPF (0-2)
[2019-11-25 21:23] LABS: APTT 25.3 Seconds (24.5-32.8)
[2019-11-25] MEDS ORDERED: LOPERAMIDE 2 MG2 M1 PO (23:26)
[2019-11-25] MEDS ORDERED: VITRON-C TABLE1 EAC1 PO (23:28)
[2019-11-25 23:39] VITALS: BP 103/49
[2019-11-26] VITALS (7 sets, daily range): BP systolic 115–137; BP diastolic 54–67
--- NOTE | 2019-11-26 01:50 | NUR ---
ADMITTED FROM HOME TO ED. PT LIVES ALONE. PT WAS IN GARAGE REMOVING ITEM FROM TRUNK, LIGHTS WENT OUT AND SHE FELL, SHE WAS LYING ON FLOOR AND THEN REMEMBERED SHE HAD A LIFE LINE BUTTON AND SHE USED IT. PT HAS FRACTURE IN R WRIST ARM, BRUISE ABOVE R EYE, HEMATOMA PER CT. PT STEADY GAIT AMBULATES WITH CANE OR WALKER AT HOME. STRESS INCONTINENCE, R ARM CAST, POSTIIVE CIRCULATION CHECK. IRREG HR TELE AFIBB, PT REPORTS SHE DOES HAVE FORGETFULLNESS RELATED TO FINDING THE STATEMENTS SHE WANTS TO MAKE. STATED HER SISTER HAS ALZHEIMERS.GLASSES AT BEDSIDE. SCDS ON. BED ALARM ON.
--- NOTE | 2019-11-26 02:52 | NUR ---
NO PIV AT THIS TIME, MULTIPLE ATTEMPTS TO RESTART.
--- NOTE | 2019-11-26 02:57 | NUR ---
PT STATES SHE IS A DNR, PT IS POTENTIAL SURGERY IN AM. PROVIDER MEDICINE AIDE NOTIFIED STATED TO HAVE DAY SHIFT ADDRESS WITH IN AM.
[2019-11-26 05:58] LABS: HEMATOCRIT 30.3 % (37.0-47.0); MCHC 33.4 g/dL (28.0-37.0); RBC 3.26 mil/uL (4.20-5.00); WBC 10.4 thou/uL (4.0-11.0)
[2019-11-26 06:08] LABS: HEMOGLOBIN 10.1 gm/dL (12.0-15.0)
[2019-11-26 06:11] LABS: CALCIUM 8.4 mg/dL (8.5-10.1); CREATININE 0.6 mg/dL (0.6-1.0); POTASSIUM 3.7 mmol/L (3.5-5.1)
--- NOTE | 2019-11-26 16:08 | NUR ---
PT UP IN CHAIR MOST OF SHIFT. PLATFORM WALKER ORDERED AFTER PT EVAL. PATIENT REPORTS PAIN MANAGED WITH MEDS, ELEVATION OF EXTREMITY AND REPOSITIONING OF ARM. DIET RESUMED THIS SHIFT. DENIES N/V. FALL PRECAUTIONS IN PACE. PATIENT CALLS FOR ASSIST APPROPRIATELY.
--- NOTE | 2019-11-26 21:33 | NUR ---
RECEIVED PT'S CARE AT 1600; PT. ON CHAIR; SLEEP INTERRUPTED; AOX4; DURING DINNER DRAWSY; ANSWER BACK TO NAME; ABLE TO HAVE DINNER; NO C/O PAIN; BACK ON BED BEFORE 1900; PASSED ON REPORT;
--- NOTE | 2019-11-26 23:16 | NUR ---
UPON ARRIVAL TO SHIFT PT ASLEEP IN BED. RARM IN CAST AND ELEVATED ON PILLOW. PT EASILY AROUSED, DECLINED HS SNACK, DENIES PAIN. POSITIVE CIRCULATION ON R ARM AND HAND. PT HAS FEMALE EXTERNAL CATHETER. SCDS AND BED ALARM ON.
[2019-11-27 05:04] VITALS: BP 150/58
[2019-11-27 07:56] VITALS: BP 150/64
[2019-11-27 15:39] VITALS: BP 122/52
[2019-11-27 19:08] VITALS: BP 142/54
--- NOTE | 2019-11-27 20:35 | NUR ---
PATIENT BEGAN PO PAIN MEDICATION THIS SHIFT. PATIENT REPORTS PAIN MANAGED, REPORTS 2/10 ON REASSESSMENT POST MEDICATION ADMINISTRATION. PATIENT UP WIT ASSIST USING PLATFORM WALKER. INCONTINENT THIS SHIFT. CONTINUES TO NEED ASSISTANCE SETTING UP TRAY, FEEDS SELF BUT ATTEMPTING TO EAT MORE FINGER FOODS DUE TO INABILITY TO USE RIGHT ARM. PATIENT HAD DIFFICULTY DRINKING OUT OF CUP AND COUGHED QUITE A BIT WHEN ATTEMPTING TO USE WITHOUT ASSISTANCE. REPORTS DIFFICULTY MANAGING WITHOUT USE OF RIGHT ARM. ENCOURAGED TO KEEP ARM ELEVATED ON PILLOWS AND NEEDS REMINDERS TO SUPPORT UNDER RIGHT FOREARM WHEN MOVING ARM USING HER LEFT HAND. SHE OFTEN FORGETS AND PULLS AT RIGHT FINGERS TO MOVE RIGHT ARM USING HER LEFT HAND. PHYSICIAN NOTIFIED OF PATIENT INCREASED NEED FOR ASSISTANCE WITH ADL'S. PATIENT NEEDS ASSIST DRESSING, BRUSHING TEETH, USING PHONE, ETC. FALL PRECAUTIONS IN PLACE.
[2019-11-28 03:29] VITALS: BP 122/54
--- NOTE | 2019-11-28 04:31 | NUR ---
Pt is sleeping quietly. VSS 98.9. Afib on monitor. Reinforced fall precautions to pt. Bed down in low locked position. Call light in reach. Side rails up x2. Bed alarm on. edicated for pain earlier this shift. She has slept most of the night withut difficulty, Enc po fluids. Inc x1.
[2019-11-28 07:57] VITALS: BP 114/46
[2019-11-28 08:11] VITALS: BP 114/46
--- NOTE | 2019-11-28 12:11 | NUR ---
Assumed pt care at 7am.Pt in bed resting without c/o.Assessment completed.vss. Afib per tele monitor.Assisted with tray setup at breakfast.Good appetite.Pt c/o rt wrist and knee pain during therapy.Lortab 1tab po given with relief. Will continue to monitor.
[2019-11-28] MEDS ORDERED: CEFUROXIME500 MG PO (13:09)
[2019-11-28] MEDS ORDERED: MIRALAX17 GM PO (13:09)
[2019-11-28] MEDS ORDERED: HYDROCODON-ACE1 EAC7 PO (13:09)
[2019-11-28] MEDS ORDERED: ACETAMINOPHEN325 M1 PO (13:09)
--- NOTE | 2019-11-28 13:40 | NUR ---
ASSESSMENT: CM REVIEWED CHART AND MET WITH PATIENT AT THE BEDSIDE. PT REPORTS THAT SHE LIVES IN A TOWNHOUSE ALONE. PT HAS ABOUT 12-14 STEPS TO THE BATHROOM/UPPER LEVEL BUT HAS A TWIN BED ON THE MAIN LEVEL. PT REPORTS HAVING A BATH BENCH WELL A CANE FOR AMBULATION. PT HAS HAD [facility] IN THE PAST AND HAS BEEN TO [facility]. CM DISCUSSED ROLE AND ATTENDING IS RECOMMENDING SNF. PT IS AGREEABLE. PTS NEICE IS ALSO PRESENT AND AGREEable WITH PLAN. CM FAXED REFERRAL TO [facility] AND THEY CAN ACCEPT PATIENT TODAY. CM NOTIFIED ATTENDING. D/C ORDERS AND SUMMARY WERE FAXED TO [facility] AND CONFIRMED THEY RECEIVED. CHART COPY ORDERED AND PARTY PLAN SALES AGENT NOTIFIED. CM NOTIFIED BEDSIDE RN. TRANSPORTATION ARRANGED FOR 1515 AND CM NOTIFIED BEDSIDE RN WELL PROVIDED THE NUMBER FOR REPORT. PT REPORTS NO FURTHER QUESTIONS.
== END 2019-11-28 15:48 | DRG 563 ==
LOC: ER 20:21 → 3W 23:29 → EROBS 23:29 → 3W 11-26 00:03
PROVIDERS: Emergency Medicine Emergency Medical Services; Nurse Practitioner Family; ADMIT Hospitalist
PROC: 2W3AX2Z Immobilization of Right Upper Arm using Cast (ICD-10-PCS; principal; 2019-11-25)
DX: S62.101A Fracture of unspecified carpal bone, right wrist, initial encounter for closed fracture (principal); N39.0 Urinary tract infection, site not specified; I48.20 Chronic atrial fibrillation, unspecified; Z96.642 Presence of left artificial hip joint; I10 Essential (primary) hypertension; W01.0XXA Fall on same level from slipping, tripping and stumbling without subsequent striking against object, initial encounter; M35.3 Polymyalgia rheumatica; K21.9 Gastro-esophageal reflux disease without esophagitis; E03.9 Hypothyroidism, unspecified; K52.9 Noninfective gastroenteritis and colitis, unspecified; Z87.440 Personal history of urinary (tract) infections; Y92.89 Other specified places as the place of occurrence of the external cause; Z79.01 Long term (current) use of anticoagulants; Z87.891 Personal history of nicotine dependence; Y99.8 Other external cause status; Y93.89 Activity, other specified; Z90.710 Acquired absence of both cervix and uterus; Z87.01 Personal history of pneumonia (recurrent); Z79.899 Other long term (current) drug therapy; Z88.1 Allergy status to other antibiotic agents; Z98.1 Arthrodesis status; Z79.891 Long term (current) use of opiate analgesic
CPT/HCPCS: 10879

== ENCOUNTER 2021-07-26 13:58 | Emergency (ER) | payer OTHER, MEDICARE ==
[~2021-07-26] VITALS: Ht 157.5 cm; Wt 57.1 kg
--- NOTE | ~2021-07-26 | EMS ---
[facility] [address] [place] [address] EMS Patient Care Report Name: JAYLEN BORJA Room #: REG YADIEL George#: [id number] Admission: 07/26/21 Attend Phys: Discharge: Date of : 33 Report #: [id number] THIS REPORT FOR: //name// Report Transmitted: 07/26/2021 13:36 EMS Care Summary [facility] Incident [id number] @ 07/26/2021 13:28 Incident Location [address] [place] [address] Patient JAYLEN BORJA Female, 86 Years 1935 Patient Address [address] [place] [address] Patient History Hypertension (HTN),Atrial Fibrillation,Hypothyroidism,Pulmonary Embolism, Patient Allergies No known allergies, Patient Medications Metoprolol, Zofran, Loperamide, Eliquis, Levothyroxine, Chief Complaint GI bleed Disposition Transported No Lights/[place] Dis[facility] Reason Hemorrhage/Laceration Transported To [facility] Narrative History- Pt is found sitting in her wheelchair in the nurses office of her assisted living. Pt is alert, oriented and does not appear to be in any distress. Pt has had bleeding from her rectum when she wipes and states that it [facility] [address] [place] [address] EMS Patient Care Report Name: JAYLEN BORJA Room #: REG Doris#: [id number] Admission: 07/26/21 Attend Phys: Discharge: Date of : 33 Report #: [id number] has been going on for a couple of days. A BREAD STACKER saw it this morning and called the dr and the dr wanted the pt to be transported to the ER. We were here early today and saw this pt for this and at that time the pt did not want to go because she had an event she wanted to go to. At that time the pt refused care and stayed at the facility. The pt now states that she got confused about what day it was and the event is tomorrow. Pt now is ok with being transported to the hospital. Pt does not have any complaints and is able to ambulate to the cot with little assistance. Treatment- Vitals. Pt is transported to [facility] and moved to the bed by sheet drag. Report given to the RN. Initial Vitals @13:50P: 84,R: 16,BP: 119/70,SpO2: 98, @13:44P: 81,R: 16,BP: 111/59,Pain: 0/10,GCS: 15,Temp: 98F,SpO2: 94,Revised Trauma: 12, Impression Gastrostomy hemorrhage Timeline 13:27,Call Received 13:27,Psap Call 13:28,Dispatched 13:29,En Route 13:38,On Scene 13:39,At Patient 13:43,Depart Scene 13:44,BP: 111/59 M,PULSE: 81,RR: 16 R,SPO2: 94 Ox,ETCO2: ,BG: ,PAIN: 0,GCS: 15, 13:50,BP: 119/70 M,PULSE: 84,RR: 16 R,SPO2: 98 Ox,ETCO2: ,BG: ,PAIN: ,GCS: , 13:55,At Destination 14:04,Call Closed Disclaimer v1.1 Copyright 2020 [employer] This EMS Care Summary contains data elements from the applicable legal record (which may be displayed differently). It is designed to provide pertinent information for the following purposes: continuity of care, clinical quality, and state data reporting. The complete legal record is available to ED staff and administrators of the receiving hospital in [employer] Patient Tracker. All data is provided "as is."
[~2021-07-26 13:58] MED LIST changes: +ACETAMINOPHEN325 M1 PO; +CEFUROXIME500 MG PO; +HYDROCODON-ACE1 EAC7 PO; +VITRON-C TABLE1 EAC1 PO
[2021-07-26] MEDS ORDERED: FEVERALL80 MG RECTAL (14:00)
[2021-07-26] MEDS ORDERED: FLOMAX0.4 MG PO (14:01)
[2021-07-26] MEDS ORDERED: CERTAVITE-LUTE1 EAC1 PO (14:01)
[2021-07-26] MEDS ORDERED: VITAMIN C500 M2 PO (14:01)
[2021-07-26] MEDS ORDERED: LEVSIN0.125 MG PO (14:02)
[2021-07-26] MEDS ORDERED: LEVOTHYROXINE75 MC1 PO (14:02)
[2021-07-26] MEDS ORDERED: MELOXICAM15 MG PO (14:03)
[2021-07-26] MEDS ORDERED: LOPERAMIDE2 MG PO (14:03)
[2021-07-26] MEDS ORDERED: MIRTAZAPINE7.5 MG PO (14:03)
[2021-07-26] MEDS ORDERED: KAPSPARGO SPRIN25 MG PO (14:03)
[2021-07-26] MEDS ORDERED: PROTONIX40 M3 PO (14:04)
[2021-07-26] MEDS ORDERED: ZOFRAN4 MG PO (14:04)
[2021-07-26 14:33] LABS: ABSOLUTE NEUTROPHILS 5.6 thou/uL (1.4-8.2); BASOPHILS 1.1 % (0.0-2.0); EOSINOPHILS 0.8 % (0.0-3.0); HEMATOCRIT 29.3 % (37.0-47.0); HEMOGLOBIN 9.6 gm/dL (12.0-15.0); LYMPHOCYTES 15.3 % (24.0-44.0); MCH 27.5 pg (26.0-34.0); MCHC 32.7 g/dL (28.0-37.0); MCV 84.1 fL (80.0-100.0); MONOCYTES 8.5 % (1.0-8.0); PLATELET COUNT 366 thou/uL (150-400); POLYS 74.3 % (36.0-66.0); RBC 3.49 mil/uL (4.20-5.00); WBC 7.5 thou/uL (4.0-11.0)
[2021-07-26 14:39] LABS: ANION GAP 7 mmol/L (7-16); BUN 33 mg/dL (7-18); CALCIUM 9.6 mg/dL (8.5-10.1); CHLORIDE 105 mmol/L (98-107); CO2 27 mmol/L (21-32); CREATININE 1.1 mg/dL (0.6-1.0); GLUCOSE 183 mg/dL (74-106); POTASSIUM 4.6 mmol/L (3.5-5.1); SODIUM 139 mmol/L (136-145)
[2021-07-26 14:48] LABS: ALBUMIN 2.9 g/dL (3.4-5.0); APTT 27.8 Seconds (24.5-32.8); DIRECT BILIRUBIN < 0.1 mg/dL (<0.1-0.2); INR 1.07; LIPASE 57 U/L (73-393); PROTIME 11.6 Seconds (10.5-12.1); SGOT 31 U/L (15-37); SGPT 18 U/L (14-59); TOTAL BILIRUBIN 0.5 mg/dL (0.2-1.0); TOTAL PROTEIN 7.8 g/dL (6.4-8.2)
[2021-07-26 20:01] VITALS: BP 131/41
== END 2021-07-26 20:01 | disposition home or self-care (01) ==
LOC: ER 13:58
PROVIDERS: Nurse Practitioner
DX: K62.5 Hemorrhage of anus and rectum (principal); Z20.822 Contact with and (suspected) exposure to COVID-19; I10 Essential (primary) hypertension; I48.91 Unspecified atrial fibrillation; K21.9 Gastro-esophageal reflux disease without esophagitis; E03.9 Hypothyroidism, unspecified; G62.9 Polyneuropathy, unspecified; Z98.890 Other specified postprocedural states; Z90.710 Acquired absence of both cervix and uterus; Z79.891 Long term (current) use of opiate analgesic; Z79.899 Other long term (current) drug therapy; Z79.1 Long term (current) use of non-steroidal anti-inflammatories (NSAID); Z88.1 Allergy status to other antibiotic agents; Z87.891 Personal history of nicotine dependence